=== PATIENT | female | born 1985 | race Hispanic/Latino ===

== ENCOUNTER 2017-09-08 19:43 | Emergency (ER) | payer SELFPAY ==
[2017-09-08 21:06] LABS: Absolute Lymphocytes (CBC) 1.4 K/uL (0.7-4.9); Absolute Monocytes 0.3 K/uL (0.1-1.3); Absolute Neutrophil 3.2 K/uL (1.8-8.0); Basophils % 0.2 % (0-1.3); Eosinophils % 1.1 % (0-4.4); Hematocrit 40.4 % (36.0-45.0); Lymphocytes % 27.6 % (15.3-44.8); MCH 28.9 pg (27.0-35.0); MCV 83.9 fL (80-100); MPV 8.7 fL (7.6-11.3); Monocytes % 6.6 % (3.3-12.3); RBC Red Blood Cell Count 4.82 M/uL (3.86-4.86)
[2017-09-08 21:22] LABS: BUN Blood Urea Nitrogen 10 mg/dL (7-18); Bicarbonate 27 mmol/L (21-32); Glucose Level 84 mg/dL (74-106); Potassium 3.3 mmol/L (3.5-5.1); Sodium Level 138 mmol/L (136-145)
[2017-09-08 21:28] LABS: Urine Blood NEGATIVE (NEG); Urine Glucose NEGATIVE (NEG); Urine Protein NEGATIVE (NEG); Urine Specific Gravity 1.015 (1.005-1.030)
[2017-09-08] MEDS ORDERED: FAMOTIDINE 20 MG/2 ML VIAL IV ONE (22:30)
[2017-09-08] MEDS ORDERED: POTASSIUM 25 MEQ EFFERV TAB ONE (22:30)
[2017-09-08] MEDS ORDERED: DIPHENHYDRAMINE 50 MG/ML VIAL ONE (22:30)
[2017-09-08] MEDS ORDERED: predniSONE 20 MG TAB ONE (22:30)
--- NOTE | 2017-09-08 23:42 | ER ---
Nurse's Notes [facility] Name: Tammy Mckinley Age: 32 yrs Sex: Female : 1985 Arrival Date: 09/08/2017 Time: 19:47 Bed 13 Private MD: Diagnosis: Chest pain, unspecified;Rash and other nonspecific skin eruption Presentation: 09/08 19:53 Presenting complaint: Patient states: "I tested positive at my job for TB, but my chest aj1 X-Ray was negative so the health department gave me a choice to take the 12 week antibiotics and I am. I woke up covered in hives. I've been using Benadryl and hydrocortisone cream, which helps but as soon as the Benadryl wears off the hives come right back. Last night my chest started to feel really tight, and my hives are really itching. I texted the nurse at the health department and she said that I needed to be seen by a doctor. Transition of care: patient was not received from another setting of care. Onset of symptoms was September 06, 2017. Risk Assessment: Do you want to hurt yourself or someone else? Patient reports no desire to harm self or others. Initial Sepsis Screen: Does the patient meet any 2 criteria? No. Patient's initial sepsis screen is negative. Does the patient have a suspected source of infection? No. Patient's initial sepsis screen is negative. Care prior to arrival: None. 19:53 Method Of Arrival: Ambulatory aj1 19:53 Acuity: VIOLET 3 aj1 Triage Assessment: 20:02 General: Appears in no apparent distress. comfortable, Behavior is calm, cooperative, aj1 appropriate for age. Pain: Complains of pain in mouth Pain does not radiate. Pain currently is 5 out of 10 on a pain scale. Neuro: Level of Consciousness is awake, alert, obeys commands, Oriented to person, place, time, situation. Cardiovascular: Denies chest pain at this time Patient's skin is warm and dry. Respiratory: Airway is patent Respiratory effort is even, unlabored, Respiratory pattern is regular, symmetrical, Breath sounds are clear bilaterally. Derm: Skin is pink, warm \\T\\ dry. normal. Musculoskeletal: Circulation, motion, and sensation intact. 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 - Social history:: Smoking status: Patient uses tobacco products, denies chronic smoking, but will smoke occasionally. - Ebola Screening: : Patient denies travel to an Ebola-affected area in the 21 days before illness onset. Screenin:13 Abuse screen: Denies threats or abuse. Denies injuries from another. Nutritional rv screening: No deficits noted. Tuberculosis screening: No symptoms or risk factors identified. Fall Risk None identified. Assessment: 20:10 General: Appears in no apparent distress. comfortable, Behavior is calm, cooperative. rv Pain: Denies pain. Neuro: Level of Consciousness is awake, alert, obeys commands, Oriented to person, place, time, situation. Cardiovascular: Cardiovascular: Heart tones S1 S2 present. Respiratory: Breath sounds are clear bilaterally. Respiratory: Airway is patent. GI: No signs and/or symptoms were reported involving the gastrointestinal system. : No signs and/or symptoms were reported regarding the genitourinary system. EENT: No signs and/or symptoms were reported regarding the EENT system. Derm: Rash noted that is itchy, on generalized. 20:41 Reassessment:. rv 21:23 Reassessment: Patient appears in no apparent distress at this time. Patient is alert, rv oriented x 3, equal unlabored respirations, skin warm/dry/pink. stable vital signs. awaiting lab results. 21:53 Reassessment: Patient appears in no apparent distress at this time. Patient is alert, rv oriented x 3, equal unlabored respirations, skin warm/dry/pink. PATIENT IS LYING ON BED, COMFORTABLE. 23:59 Pain: Denies pain. Pain began. rv Vital Signs: 20:02 BP 117 / 90; Pulse 72; Resp 18; Temp 98.4; Pulse Ox 98% on R/A; Weight 84.82 kg (R); aj1 Height 4 ft. 11 in. (149.86 cm) (R); 21:22 BP 130 / 107; Pulse 68; Resp 16; Pulse Ox 99% on R/A; rv 21:54 BP 122 / 71; Pulse 72; Resp 16; Pulse Ox 100% on R/A; rv 22:48 BP 115 / 86; rv 20:02 Body Mass Index 37.77 (84.82 kg, 149.86 cm) [facility] ED Course: 19:47 Patient arrived in ED. es 20:01 Triage completed. aj1 20:02 Arm band placed on Patient placed in an exam room. aj1 20:08 Catina Pa NP is PHCP. 1 20:08 Rhett Edgar MD is Attending Physician. rh1 20:13 Patient has correct armband on for positive identification. Bed in low position. Call rv light in reach. Side rails up X 1. Pulse ox on. NIBP on. 20:20 Inserted saline lock: 20 gauge in left antecubital area, using aseptic technique. rv 22:22 Chest Single View XRAY In Process Unspecified. EDOK 22:36 Alireza Yu, RN is Primary Nurse. bp 23:58 No provider procedures requiring assistance completed. IV discontinued, bleeding rv controlled, No redness/swelling at site. Pressure dressing applied. 23:59 Patient maintains SpO2 saturation greater than 95% on room air. rv Administered Medications: 22:39 Drug: Pepcid 20 mg Route: IVP; Site: left antecubital; rv 22:39 Drug: Benadryl 50 mg Route: IVP; Site: left antecubital; rv 22:39 Drug: Potassium Effervescent Tablet 50 mEq Route: PO; rv 22:40 Drug: predniSONE 60 mg Route: PO; rv Outcome: 23:41 Discharge ordered by . [facility] 23:58 Discharged to home ambulatory. rv 23:58 Condition: improved 23:58 Discharge instructions given to patient, Instructed on discharge instructions, medication usage. 07 00:00 Patient left the ED. rv Signatures: Dispatcher [employer] EDOK Lotus Carroll RN RN [facility] Stephanie Falk Rachel, NP TYPESETTING MACHINE OPERATOR/TENDER [facility] Alireza Yu, RN RN bp John Sun RN RN rv
--- NOTE | 2017-09-08 23:42 | EDPHYS ---
Physician Documentation [facility] Name: Tammy Mckinley Age: 32 yrs Sex: Female : 1985 Arrival Date: 09/08/2017 Time: 19:47 Bed 13 Private MD: ED Physician Rhett Edgar HPI: 09/08 20:16 This 32 yrs old Female presents to ER via Ambulatory with complaints of Chest rh1 Tightness, Allergic Reaction. 20:16 The patient or guardian reports chest pain that is located primarily in the anterior rh1 chest wall, left. The pain does not radiate. Associated signs and symptoms: Pertinent positives: nausea, Pertinent negatives: abdominal pain, cough, diaphoresis, dizziness, headache, lower extremity pain, lower extremity swelling, lightheadedness, near syncope, palpitations, recent travel, shortness of breath, syncope, vomiting. The chest pain is described as tight. Duration: The patient or guardian reports multiple episodes, that have now resolved, approximately 2 episodes since symptom onset, with no pattern, the episodes last approximately 10 minute(s). Duration: The patient or guardian reports multiple episodes, most recent episode just DRAWER IN PLAIN LOOM. Modifying factors: The symptoms are alleviated by nothing. the symptoms are aggravated by nothing. Severity of pain: At its worst the pain was moderate in the emergency department the pain has resolved. The patient has not experienced similar symptoms in the past. The patient has not recently seen a physician. Pt. reports she began with hives approx. 3 days ago, diffusely. She has been taking benadryl at home, most recent dose this am. Last night and today she has had episodes of "tight" non - radiating chest pain, not provoked by exertion. She did have nausea with episodes. She denies any complaints at this time, except itching. Denies any SOB, vomiting, diarrhea, abdominal pain. Approx 3 weeks ago she began once weekly treatment for latent TB with isoniazid and rifapentine, and thinks she is having an allergic reaction to one of those medications.. 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 - Social history:: Smoking status: Patient uses tobacco products, denies chronic smoking, but will smoke occasionally. - Ebola Screening: : Patient denies travel to an Ebola-affected area in the 21 days before illness onset. ROS: 20:16 Constitutional: Negative for fever, chills rh1 20:16 ENT: Negative for difficulty swallowing, difficulty handling secretions, hoarseness. 20:16 Neck: Negative for swelling. 20:16 Cardiovascular: Positive for chest pain, Negative for edema, orthopnea, palpitations. 20:16 Respiratory: Negative for cough, dyspnea on exertion, hemoptysis, shortness of breath, wheezing. 20:16 Abdomen/GI: Positive for nausea, Negative for abdominal pain, vomiting, diarrhea. 20:16 Back: Negative for decreased range of motion, pain at rest, pain with movement, radiated pain. 20:16 MS/extremity: Negative for pain, paresthesias, swelling, tenderness. 20:16 Skin: Positive for rash. 20:16 Neuro: Negative for altered mental status, dizziness, headache, numbness, syncope, near syncope, tingling, weakness. Exam: 20:16 Constitutional: This is a well developed, well nourished patient who is awake, alert, rh1 and in no acute distress. Head/Face: Normocephalic, atraumatic. ENT: Nares patent. No nasal discharge, no septal abnormalities noted. Tympanic membranes are normal and external auditory canals are clear. Oropharynx with no redness, swelling, or masses, exudates, or evidence of obstruction, uvula midline. Mucous membranes moist. Neck: Trachea midline, and no cervical lymphadenopathy. Supple, full range of motion without nuchal rigidity. No Meningismus. Chest/axilla: Normal chest wall appearance and motion. Nontender with no deformity. No lesions are appreciated. Cardiovascular: Regular rate and rhythm with a normal S1 and S2. No gallops, murmurs, or rubs. No JVD. No pulse deficits. Respiratory: Lungs have equal breath sounds bilaterally, clear to auscultation. No rales, rhonchi or wheezes noted. No increased work of breathing. Abdomen/GI: Soft, non-tender, with normal bowel sounds. No distension. No guarding or rebound. No evidence of tenderness throughout. Back: No spinal tenderness. No costovertebral tenderness. Full range of motion. MS/ Extremity: Pulses equal, no cyanosis. Neurovascular intact. Full, normal range of motion. 20:16 Musculoskeletal/extremity: DVT Exam: No signs of deep vein thrombosis. Calves: are non-tender, have equal circumference. 20:16 Skin: rash a mild rash is noted, rash can be described as erythematous, raised, urticarial, and is diffusely located, rash scattered diffusely. 20:16 Neuro: Orientation: is normal, to person, place \\T\\ time. Mentation: is normal, lucid, able to follow commands, Motor: is normal, moves all fours, strength is 5/5 in all extremities, Sensation: is normal, no obvious gross deficits, numbness, is not appreciated, tingling, is not appreciated, Gait: is steady, at a normal pace, without difficulty. Vital Signs: 20:02 BP 117 / 90; Pulse 72; Resp 18; Temp 98.4; Pulse Ox 98% on R/A; Weight 84.82 kg (R); aj1 Height 4 ft. 11 in. (149.86 cm) (R); 21:22 BP 130 / 107; Pulse 68; Resp 16; Pulse Ox 99% on R/A; rv 21:54 BP 122 / 71; Pulse 72; Resp 16; Pulse Ox 100% on R/A; rv 22:48 BP 115 / 86; rv 20:02 Body Mass Index 37.77 (84.82 kg, 149.86 cm) aj MDM: 20:16 Patient medically screened. rh1 23:40 Response to treatment: the patient's symptoms have markedly improved after treatment, rh1 denies any further episodes of chest pain, no SOB, denies any further itching -- she was instructed by health dept. nurse to stop medications for TB, and is planning to have follow up with Dr. Gregorio regarding further treatment if needed. 23:40 Data reviewed: vital signs, nurses notes, lab test result(s), EKG, radiologic studies, rh1 plain films, and as a result, I will discharge patient. Data interpreted: Pulse oximetry: on room air is 100 %. Interpretation: normal. Counseling: I had a detailed discussion with the patient and/or guardian regarding: the historical points, exam findings, and any diagnostic results supporting the discharge/admit diagnosis, lab results, radiology results, the need for outpatient follow up, a family practitioner, to return to the emergency department if symptoms worsen or persist or if there are any questions or concerns that arise at home. 09/08 20:52 Order name: CBC with Diff; Complete Time: 21:10 1 09/08 20:52 Order name: BMP; Complete Time: 21:55 [facility] 09/08 20:52 Order name: Troponin (emerg Dept Use Only); Complete Time: 21:55 09/08 20:52 Order name: Chest Single View XRAY [facility] 09/08 21:25 Order name: Urine Dipstick--Ancillary (enter results); Complete Time: 21:55 09/08 21:25 Order name: Urine --Ancillary (enter results); Complete Time: 21:55 09/08 20:52 Order name: EKG - Nurse/Tech; Complete Time: 21: 09/08 20:52 Order name: Urine Dipstick-Ancillary (obtain specimen); Complete Time: 21: 09/08 20:52 Order name: Urine Test (obtain specimen); Complete Time: 21:21 rh1 Administered Medications: 22:39 Drug: Pepcid 20 mg Route: IVP; Site: left antecubital; rv 22:39 Drug: Benadryl 50 mg Route: IVP; Site: left antecubital; rv 22:39 Drug: Potassium Effervescent Tablet 50 mEq Route: PO; rv 22:40 Drug: predniSONE 60 mg Route: PO; rv Disposition: 09/08/17 23:41 Discharged to Home. Impression: Chest pain, unspecified, Rash and other nonspecific skin eruption. - Condition is Stable. - Discharge Instructions: Allergies, Nonspecific Chest Pain, Rash. - Prescriptions for Prednisone 20 mg Oral Tablet - take 2 tablet by ORAL route once daily for 5 days; 10 tablet. Pepcid 20 mg Oral Tablet - take 1 tablet by ORAL route once daily; 20 tablet. Benadryl 25 mg Oral Capsule - take 1 capsule by ORAL route every 6 hours As needed; 30 tablet. - Medication Reconciliation Form, Thank You Letter, Antibiotic Education, Prescription Opioid Use form. - Follow up: Private Physician; When: 1 - 2 days; Reason: Recheck today's complaints, Continuance of care, Re-evaluation by your physician. Follow up: Emergency Department; When: As needed; Reason: Fever > 102 F, If symptoms return, Trouble breathing, Worsening of condition. - Problem is new. - Symptoms have improved. - Notes: 1. Stopantibiotics as instruced by health department nurse and follow up as discussed. Addendum: 09/10/2017 08:46 Co-signature as Attending Physician, Rhett Edgar MD I agree with the assessment and c lopes plan of care. Signatures: Dispatcher [employer] EDMS Lotus Carroll RN RN 1 Rhett Edgar MD MD cha Jones, Rachel, MEDHAT OFFAL SEPARATOR 1 John Sun RN RN rv Corrections: (The following items were deleted from the chart) 09/08 21:03 20:16 Pt. reports she began with hives approx. 3 days ago, diffusely. She has been rh1 taking benadryl at home, most recent dose this am. Last night and today she has had episodes of "tight" non - radiating chest pain, not provoked by exertion. She did have nausea with episodes. She denies any complaints at this time, except itching. Denies any SOB, vomiting, diarrhea, abdominal pain.. 1 09/09 00:00 09/08 23:41 09/08/2017 23:41 Discharged to Home. Impression: Chest pain, unspecified; rv Rash and other nonspecific skin eruption. Condition is Stable. Forms are Medication Reconciliation Form, Thank You Letter, Antibiotic Education, Prescription Opioid Use. Follow up: Private Physician; When: 1 - 2 days; Reason: Recheck today's complaints, Continuance of care, Re-evaluation by your physician. Follow up: Emergency Department; When: As needed; Reason: Fever > 102 F, If symptoms return, Trouble breathing, Worsening of condition. Problem is new. Symptoms have improved. 1 09/09 02:10 09/08 23:40 Response to treatment: the patient's symptoms have markedly improved after rh1 treatment, denies any further episodes of chest pain, no SOB, denies any further itching, 1 09/09 02:11 09/08 20:16 Pt. reports she began with hives approx. 3 days ago, diffusely. She has rh1 been taking benadryl at home, most recent dose this am. Last night and today she has had episodes of "tight" non - radiating chest pain, not provoked by exertion. She did have nausea with episodes. She denies any complaints at this time, except itching. Denies any SOB, vomiting, diarrhea, abdominal pain. Approx 3 weeks ago she began once weekly treatment for latent TB with isoniazid and rifapentine, and thinks she is having an allergic reaction to one of those medications.. rh1
[2017-09-09 00:24] VITALS: TEMP 98.4
[2017-09-09 00:26] VITALS: O2SAT 100
[2017-09-09 00:27] VITALS: BP 115/86
--- NOTE | 2017-09-09 12:40 | RAD REPORT ---
EXAM DESCRIPTION: RAD - Chest Single View - 09/08/2017 10:22 pm CLINICAL HISTORY: CHEST PAIN Chest pain. COMPARISON: No comparisons FINDINGS: Portable technique limits examination quality. The lungs are grossly clear. The heart is normal in size. No displaced fractures.No finding suspiciou s for tuberculosis. IMPRESSION: No acute intrathoracic process suspected.
--- NOTE | 2017-09-09 16:04 | EKG ---
Test Date: 2017-09-08 Test Time: 21:11:06 Receiving Worker: MEASUREMENT RESULTS: Intervals: Rate: 69 MI: 126 QRSD: 102 QT: 402 QTc: 430 [place]: P: 41 MI: 126 QRS: 53 T: 37 INTERPRETIVE STATEMENTS: Normal sinus rhythm Normal ECG No previous ECG available for comparison Electronically Signed On 09-09-17 16:03:32 CDT by Will Good
== END 2017-09-09 | disposition home or self-care (01) ==
LOC: ER 19:43
DX: R21 Rash and other nonspecific skin eruption (principal); Z72.0 Tobacco use
CPT/HCPCS: 36415; 71045; 80048; 81003; 81025; 84484; 85025; 93005; 96374; 96375; 99284; J7512

== ENCOUNTER 2018-11-25 08:44 | Emergency (ER) | payer SELFPAY ==
[2018-11-25] MEDS ORDERED: AZITHROMYCIN 250 MG TAB ONE (10:46)
--- NOTE | 2018-11-25 11:28 | ER ---
Nurse's Notes [facility] Name: Tammy Mckinley Age: 33 yrs Sex: Female : 1985 Arrival Date: 11/25/2018 Time: 08:47 Bed 25 Private MD: Diagnosis: Streptococcal pharyngitis Presentation: 11/25 09:04 Presenting complaint: Patient states: sore throat since this am. Transition of care: sv patient was not received from another setting of care. Onset of symptoms was November 25, 2018. Risk Assessment: Do you want to hurt yourself or someone else? Patient reports no desire to harm self or others. Care prior to arrival: None. 09:04 Method Of Arrival: Ambulatory sv 09:04 Acuity: VIOLET 4 sv 09:05 Initial Sepsis Screen: Does the patient meet any 2 criteria? No. Patient's initial rb1 sepsis screen is negative. Does the patient have a suspected source of infection? No. Patient's initial sepsis screen is negative. Triage Assessment: 09:04 General: Appears in no apparent distress. comfortable, Behavior is calm, cooperative, sv appropriate for age. EENT: Reports pain when swallowing. Neuro: Level of Consciousness is awake, alert, obeys commands, Gait is steady. Respiratory: Respiratory effort is even, unlabored, Respiratory pattern is regular, symmetrical. 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 - Social history:: Smoking status: Patient uses tobacco products, denies chronic smoking, but will smoke occasionally. - Ebola Screening: : Patient negative for fever greater than or equal to 101.5 degrees Fahrenheit, and additional compatible Ebola Virus Disease symptoms. Screenin:05 Abuse screen: Denies threats or abuse. Nutritional screening: No deficits noted. rb1 Tuberculosis screening: inactive TB per pt. report. Fall Risk None identified. Assessment: 09:05 General: Appears in no apparent distress. comfortable, Behavior is calm, cooperative, rb1 Denies fever. Pain: Complains of pain in throat Pain currently is 5 out of 10 on a pain scale. Pain began this morning. Neuro: Level of Consciousness is awake, alert, obeys commands, Oriented to person, place, time, situation. Cardiovascular: Capillary refill < 3 seconds is brisk in bilateral fingers. Respiratory: Airway is patent Respiratory effort is even, unlabored, Respiratory pattern is regular, symmetrical. GI: Reports diarrhea, intermittently for the past week. : No signs and/or symptoms were reported regarding the genitourinary system. EENT: Throat is reddened. Derm: Skin is pink, warm \T\ dry. Musculoskeletal: Range of motion: intact in all extremities. 09:05 Respiratory: Breath sounds are clear bilaterally. rb1 Vital Signs: 09:07 BP 118 / 80; Pulse 76; Resp 16; Temp 98.2(O); Pulse Ox 97% on R/A; Weight 90.72 kg; sv Height 4 ft. 11 in. (149.86 cm); Pain 5/10; 10:07 BP 116 / 75; Pulse 81; Resp 16; Temp 98.1(O); Pulse Ox 99% ; rb1 09:07 Body Mass Index 40.39 (90.72 kg, 149.86 cm) sv ED Course: 08:47 Patient arrived in ED. as 08:57 Rosa Isela Vasquez F[facility]-C [facility] snw 08:57 Rhett Edgar MD is Attending Physician. snw 09:04 Triage completed. sv 09:04 Arm band placed on. sv 09:05 Patient has correct armband on for positive identification. Bed in low position. Call rb1 light in reach. Side rails up X 1. Pulse ox on. NIBP on. 09:17 Olga Field, RN is Primary Nurse. rb1 10:59 Patient did not have IV access during this emergency room visit. rb1 10:59 No provider procedures requiring assistance completed. rb1 Administered Medications: 10:53 Drug: Zithromax 500 mg Route: PO; rb1 10:59 Follow up: Response: No adverse reaction; Medication administered at discharge. rb1 Outcome: 10:21 Discharge ordered by . snw 10:59 Patient left the ED. rb1 10:59 Discharged to home ambulatory, with family. rb1 10:59 Condition: stable 10:59 Discharge instructions given to patient, Instructed on Demonstrated understanding of instructions, follow-up care, medications, Prescriptions given X 2. Signatures: Kelvin, Karina, RN RN sv Rosa Isela Vasquez, HOP TRAINER-C HOP TRAINER-Cs[facility] Amy Morillo Rebecca, RN RN rb1
--- NOTE | 2018-11-25 11:28 | EDPHYS ---
Physician Documentation [facility] Name: Tammy Mckinley Age: 33 yrs Sex: Female : 1985 Arrival Date: 11/25/2018 Time: 08:47 Bed 25 Private MD: VINCENT Physician Rhett Edgar HPI: 11/25 10:02 This 33 yrs old Female presents to ER via Ambulatory with complaints of Sore snw Throat. 10:02 The patient presents with sore throat. The patient describes throat pain as raw. Onset: snw The symptoms/episode began/occurred suddenly. Severity of symptoms: At their worst the symptoms were mild, moderate. Associated signs and symptoms: The patient has no apparent associated signs or symptoms. It is unknown whether or not the patient has had similar symptoms in the past. It is unknown whether or not the patient has recently seen a physician. 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 - Social history:: Smoking status: Patient uses tobacco products, denies chronic smoking, but will smoke occasionally. - Ebola Screening: : Patient negative for fever greater than or equal to 101.5 degrees Fahrenheit, and additional compatible Ebola Virus Disease symptoms. ROS: 10:01 Constitutional: Negative for fever, chills, and weight loss, Eyes: Negative for injury, snw pain, redness, and discharge, Neck: Negative for injury, pain, and swelling, Cardiovascular: Negative for chest pain, palpitations, and edema, Respiratory: Negative for shortness of breath, cough, wheezing, and pleuritic chest pain, Abdomen/GI: Negative for abdominal pain, nausea, vomiting, diarrhea, and constipation, Back: Negative for injury and pain, : Negative for injury, bleeding, discharge, and swelling, MS/Extremity: Negative for injury and deformity, Skin: Negative for injury, rash, and discoloration, Neuro: Negative for headache, weakness, numbness, tingling, and seizure. 10:01 ENT: Positive for sore throat. Exam: 10:00 Constitutional: This is a well developed, well nourished patient who is awake, alert, snw and in no acute distress. Head/Face: Normocephalic, atraumatic. Eyes: Pupils equal round and reactive to light, extra-ocular motions intact. Lids and lashes normal. Conjunctiva and sclera are non-icteric and not injected. Cornea within normal limits. Periorbital areas with no swelling, redness, or edema. ENT: Nares patent. No nasal discharge, no septal abnormalities noted. Tympanic membranes are normal and external auditory canals are clear. Some scarring noted to right TM. Oropharynx with mild redness, swelling, no masses, exudates, or evidence of obstruction, uvula midline. tonsils enlarged bilaterally. Mucous membranes moist. Neck: Trachea midline, no thyromegaly or masses palpated, and no cervical lymphadenopathy. Supple, full range of motion without nuchal rigidity, or vertebral point tenderness. No Meningismus. Chest/axilla: Normal chest wall appearance and motion. Nontender with no deformity. No lesions are appreciated. Cardiovascular: Regular rate and rhythm with a normal S1 and S2. No gallops, murmurs, or rubs. Normal PMI, no JVD. No pulse deficits. Respiratory: Lungs have equal breath sounds bilaterally, clear to auscultation and percussion. No rales, rhonchi or wheezes noted. No increased work of breathing, no retractions or nasal flaring. Abdomen/GI: Soft, non-tender, with normal bowel sounds. No distension or tympany. No guarding or rebound. No evidence of tenderness throughout. Back: No spinal tenderness. No costovertebral tenderness. Full range of motion. Skin: Warm, dry with normal turgor. Normal color with no rashes, no lesions, and no evidence of cellulitis. MS/ Extremity: Pulses equal, no cyanosis. Neurovascular intact. Full, normal range of motion. Neuro: Awake and alert, GCS 15, oriented to person, place, time, and situation. Cranial nerves II-XII grossly intact. Motor strength 5/5 in all extremities. Sensory grossly intact. Cerebellar exam normal. Normal gait. Psych: Awake, alert, with orientation to person, place and time. Behavior, mood, and affect are within normal limits. Vital Signs: 09:07 BP 118 / 80; Pulse 76; Resp 16; Temp 98.2(O); Pulse Ox 97% on R/A; Weight 90.72 kg; sv Height 4 ft. 11 in. (149.86 cm); Pain 5/10; 10:07 BP 116 / 75; Pulse 81; Resp 16; Temp 98.1(O); Pulse Ox 99% ; rb1 09:07 Body Mass Index 40.39 (90.72 kg, 149.86 cm) sv MDM: 09:[address] [facility] 10:21 Data reviewed: vital signs, nurses notes. Data interpreted: Pulse oximetry: on room air snw is 97 %. Interpretation: normal. Counseling: I had a detailed discussion with the patient and/or guardian regarding: the historical points, exam findings, and any diagnostic results supporting the discharge/admit diagnosis, lab results, the need for outpatient follow up, to return to the emergency department if symptoms worsen or persist or if there are any questions or concerns that arise at home. Special discussion: Based on the history and exam findings, there is no indication for further emergent testing or inpatient evaluation. I discussed with the patient/guardian the need to see the primary care provider for further evaluation of the symptoms. 10:27 ED course: Daughter in ED strep + today. snw 11/25 08:56 Order name: Strep snw Administered Medications: 10:53 Drug: Zithromax 500 mg Route: PO; rb1 10:59 Follow up: Response: No adverse reaction; Medication administered at discharge. rb1 Disposition: 11/26 07:42 Co-signature as Attending Physician, Rhett Edgar MD I agree with the assessment and [facility] plan of care. Disposition: 11/25/18 10:21 Discharged to Home. Impression: Streptococcal pharyngitis. - Condition is Stable. - Discharge Instructions: Sore Throat, Strep Throat. - Prescriptions for promethazine 25 mg Oral Tablet - take 1 tablet by ORAL route every 6 hours As needed; 20 tablet. Zithromax 500 mg Oral Tablet - take 1 tablet by ORAL route once daily for 5 days; 5 tablet. - Work release form, Medication Reconciliation Form, Thank You Letter, Antibiotic Education, Prescription Opioid Use form. - Follow up: Emergency Department; When: As needed; Reason: Worsening of condition. Follow up: Private Physician; When: 2 - 3 days; Reason: Recheck today's complaints, Continuance of care, Re-evaluation by your physician. Signatures: Dispatcher [employer] Karina Johnson, RN RN Rhett Santacruz MD MD cha Therrien, Shelly, ATTRACTION ATTENDANT-C ATTRACTION ATTENDANT-Csnw Olga Field, RN RN rb1 Corrections: (The following items were deleted from the chart) 11/25 10:59 10:21 11/25/2018 10:21 Discharged to Home. Impression: Streptococcal pharyngitis. rb1 Condition is Stable. Forms are Medication Reconciliation Form, Thank You Letter, Antibiotic Education, Prescription Opioid Use. Follow up: Emergency Department; When: As needed; Reason: Worsening of condition. Follow up: Private Physician; When: 2 - 3 days; Reason: Recheck today's complaints, Continuance of care, Re-evaluation by your physician. snw
[2018-11-25 11:33] VITALS: BP 118/80; TEMP 98.2; O2SAT 97
== END 2018-11-25 10:59 | disposition home or self-care (01) ==
LOC: ER 08:44
DX: J02.0 Streptococcal pharyngitis (principal); Z72.0 Tobacco use
CPT/HCPCS: 87070; 87081; 99283

== ENCOUNTER 2019-05-07 01:49 | Emergency (ER) | payer SELFPAY ==
[2019-05-07] MEDS ORDERED: KETOROLAC 30 MG/ML INJ ONE (02:42)
[2019-05-07] MEDS ORDERED: dexAMETHasone 4 MG/ML VIAL ONE (02:42)
--- NOTE | 2019-05-07 02:42 | EDPHYS ---
Physician Documentation [facility] Name: Tammy Mckinley Age: 34 yrs Sex: Female : 1985 Arrival Date: 05/07/2019 Time: 01:49 Bed 8 Private MD: ED Physician Flex Brown HPI: 05/07 02:35 This 34 yrs old Female presents to ER via Ambulatory with complaints of Back rn Pain. 02:35 The patient presents with pain that is acute, with no known mechanism of injury. The rn symptoms are located in the thoracic area. 02:35 Onset: The symptoms/episode began/occurred yesterday. The pain does not radiate. rn Associated signs and symptoms: The patient has no apparent associated signs or symptoms, Pertinent negatives: abdominal pain, chest pain, fever, incontinence, nausea, numbness, tingling, urinary retention, vomiting, weakness. Modifying factors: The patient symptoms are alleviated by remaining still, massage, the patient symptoms are aggravated by any movement. Severity of symptoms: At their worst the symptoms were moderate, in the emergency department the symptoms are unchanged. The patient has experienced similar episodes in the past. 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 No urinary symptoms. Reports saw Radha Richards and had neg plain films, has never had an MRI. Came tonight to try to get MRI. . Historical: - Allergies: 01:55 Rifampin; jb4 - Home Meds: 01:55 Melatonin Oral [Active]; jb4 - PMHx: 01:55 inactive TB; jb4 - PSHx: 01:55 abcess removal; ; jb4 - Immunization history:: Adult Immunizations up to date. - Coronavirus screen:: The patient has NOT traveled to [place] in the past 14 days. Proceed with normal triage process as indicated. The patient has NOT had contact with known/suspected case of Coronavirus? Proceed with normal triage procedures. - Social history:: Smoking status: Patient denies any tobacco usage or history of. Patient uses alcohol, only on a social basis. Patient/guardian denies using alcohol. - Family history:: not pertinent. - Ebola Screening: : No symptoms or risks identified at this time. - Hospitalizations: : No recent hospitalization is reported. ROS: 02:35 Constitutional: Negative for fever, chills, and weight loss, Eyes: Negative for injury, rn pain, redness, and discharge, Neck: Negative for injury, pain, and swelling, Cardiovascular: Negative for chest pain, palpitations, and edema, Respiratory: Negative for shortness of breath, cough, wheezing, and pleuritic chest pain, Abdomen/GI: Negative for abdominal pain, nausea, vomiting, diarrhea, and constipation, Back: + mid back pain, neg for injury : Negative for injury, bleeding, discharge, and swelling, MS/Extremity: Negative for injury and deformity, Skin: Negative for injury, rash, and discoloration, Neuro: Negative for headache, weakness, numbness, tingling, and seizure. Exam: 02:35 Constitutional: This is a well developed, well nourished patient who is awake, alert, rn and in no acute distress. Ambulatory to room without difficulty or assistance. Head/Face: Normocephalic, atraumatic. Eyes: Pupils equal round and reactive to light, extra-ocular motions intact. Neck: No cervical tenderness Back: No spinal tenderness. No skin changes, no stepoff Skin: Warm, dry MS/ Extremity: Pulses equal, no cyanosis. Neurovascular intact. Full, normal range of motion. Equal circumference. Neuro: Awake and alert, GCS 15, oriented to person, place, time, and situation. Motor strength 5/5 in all extremities. Sensory grossly intact. Cerebellar exam normal. Normal gait. Vital Signs: 01:55 BP 133 / 84; Pulse 67; Resp 16; Temp 98.1(TE); Pulse Ox 100% on R/A; Weight 90.72 kg jb4 (R); Height 4 ft. 11 in. (149.86 cm) (R); Pain 8/10; 02:45 BP 126 / 67; Pulse 97; Resp 16; Pulse Ox 100% on R/A; jb4 01:55 Body Mass Index 40.39 (90.72 kg, 149.86 cm) jb4 MDM: 01:53 Patient medically screened. rn 02:35 Differential diagnosis: arthritis, chronic back pain, muscle spasm, radiculopathy, disc rn problems. Data reviewed: vital signs, nurses notes, and as a result, I will discharge patient. Counseling: I had a detailed discussion with the patient and/or guardian regarding: the historical points, exam findings, and any diagnostic results supporting the discharge/admit diagnosis, the need for outpatient follow up, to return to the emergency department if symptoms worsen or persist or if there are any questions or concerns that arise at home. Response to treatment: the patient's symptoms have mildly improved after treatment, and as a result, I will discharge patient. Special discussion: I discussed with the patient/guardian in detail that at this point there is no indication for admission to the hospital. It is understood, however, that if the symptoms persist or worsen the patient needs to return immediately for re-evaluation. Further emergent ED testing is not indicated at this point in time. I discussed with the patient/guardian in detail the need to arrange with the PCP or specialist further outpatient testing, MRI. ED course: Normal neuro exam, no new symptoms, not able to get MRI here, recommend outpt MRI and pcp f/u. . 05/07 02:11 Order name: EKG; Complete Time: 02:12 rn 05/07 02:11 Order name: EKG - Nurse/Tech; Complete Time: 02:51 rn Administered Medications: 02:48 Drug: TORadol 30 mg Route: IM; Site: left gluteus; jb4 03:15 Follow up: Response: No adverse reaction; Pain is decreased jb4 02:51 Drug: Decadron 10 mg Route: IM; Site: right gluteus; jb4 03:15 Follow up: Response: No adverse reaction 4 Disposition: 05/07/19 02:41 Discharged to Home. Impression: Muscle spasm of back, Back pain. - Condition is Stable. - Discharge Instructions: Muscle Cramps and Spasms, Back Injury Prevention, [id number], Back Exercises, [id number]. - Prescriptions for Cyclobenzaprine 10 mg Oral Tablet - take 1 tablet by ORAL route every 8 hours As needed; 20 tablet. Medrol (Ephraim) 4 mg Oral Tablets, Dose Pack - take 1 tablet by ORAL route as directed - follow package instructions; 1 packet. - Medication Reconciliation Form, Thank You Letter, Antibiotic Education, Prescription Opioid Use form. - Follow up: Private Physician; When: As needed; Reason: Recheck today's complaints, Re-evaluation by your physician. - Problem is chronic. - Symptoms have improved. Signatures: Flex Brown MD MD rn Bryson, James, RN RN jb4 Corrections: (The following items were deleted from the chart) 03:19 02:41 05/07/2019 02:41 Discharged to Home. Impression: Muscle spasm of back; Back pain. jb4 Condition is Stable. Forms are Medication Reconciliation Form, Thank You Letter, Antibiotic Education, Prescription Opioid Use. Follow up: Private Physician; When: As needed; Reason: Recheck today's complaints, Re-evaluation by your physician. Problem is chronic. Symptoms have improved. rn
--- NOTE | 2019-05-07 02:42 | ER ---
Nurse's Notes [facility] Name: Tammy Mckinley Age: 34 yrs Sex: Female : 1985 Arrival Date: 05/07/2019 Time: 01:49 Bed 8 Private MD: Diagnosis: Muscle spasm of back;Back pain Presentation: 05/07 01:55 Presenting complaint: Patient states: I am having upper back pain. I have had this pain jb4 for about 5 years. Normally I can do something about it, but tonight I can't and it feels like its moving down my spine. It feels like a fire in my back. 01:55 Transition of care: patient was not received from another setting of care. Onset of jb4 symptoms was May 07, 2019. Risk Assessment: Do you want to hurt yourself or someone else? Patient reports no desire to harm self or others. Initial Sepsis Screen: Does the patient meet any 2 criteria? No. Patient's initial sepsis screen is negative. Does the patient have a suspected source of infection? No. Patient's initial sepsis screen is negative. Care prior to arrival: None. 01:55 Method Of Arrival: Ambulatory jb4 01:55 Acuity: VIOLET 4 jb4 Historical: - Allergies: 01:55 Rifampin; jb4 - Home Meds: 01:55 Melatonin Oral [Active]; jb4 - PMHx: 01:55 inactive TB; jb4 - PSHx: 01:55 abcess removal; ; jb4 - Immunization history:: Adult Immunizations up to date. - Coronavirus screen:: The patient has NOT traveled to [place] in the past 14 days. Proceed with normal triage process as indicated. The patient has NOT had contact with known/suspected case of Coronavirus? Proceed with normal triage procedures. - Social history:: Smoking status: Patient denies any tobacco usage or history of. Patient uses alcohol, only on a social basis. Patient/guardian denies using alcohol. - Family history:: not pertinent. - Ebola Screening: : No symptoms or risks identified at this time. - Hospitalizations: : No recent hospitalization is reported. Screenin:00 Abuse screen: Denies threats or abuse. Nutritional screening: No deficits noted. jb4 Tuberculosis screening: No symptoms or risk factors identified. Fall Risk None identified. Assessment: 02:00 General: Appears in no apparent distress. uncomfortable, Behavior is calm, cooperative, jb4 appropriate for age. Pain: Complains of pain in thoracic area Pain does not radiate. Pain currently is 8 out of 10 on a pain scale. Quality of pain is described as burning. Neuro: Level of Consciousness is awake, alert, obeys commands, Oriented to person, place, time, situation. Cardiovascular: Patient's skin is warm and dry. Respiratory: Airway is patent Respiratory effort is even, unlabored, Respiratory pattern is regular, symmetrical. GI: No signs and/or symptoms were reported involving the gastrointestinal system. : No signs and/or symptoms were reported regarding the genitourinary system. EENT: No signs and/or symptoms were reported regarding the EENT system. Derm: Skin is intact, Skin is pink, warm \T\ dry. Musculoskeletal: Circulation, motion, and sensation intact. Range of motion: intact in all extremities. 03:15 Reassessment: Patient appears in no apparent distress at this time. Patient and/or jb4 family updated on plan of care and expected duration. Pain level reassessed. Patient is alert, oriented x 3, equal unlabored respirations, skin warm/dry/pink. Pt verbalized understanding of d/c and follow up instructions. Denies questions or concerns. Ambulated out of ED with steady gait. Vital Signs: 01:55 BP 133 / 84; Pulse 67; Resp 16; Temp 98.1(TE); Pulse Ox 100% on R/A; Weight 90.72 kg jb4 (R); Height 4 ft. 11 in. (149.86 cm) (R); Pain 8/10; 02:45 BP 126 / 67; Pulse 97; Resp 16; Pulse Ox 100% on R/A; jb4 01:55 Body Mass Index 40.39 (90.72 kg, 149.86 cm) jb4 ED Course: 01:49 Patient arrived in ED. ds1 01:53 Flex Brown MD is Attending Physician. rn 01:55 Arm band placed on right wrist. jb4 02:00 Patient has correct armband on for positive identification. Bed in low position. Call jb4 light in reach. Side rails up X 1. Pulse ox on. NIBP on. 02:09 Damaso Cifuentes, RN is Primary Nurse. jb4 02:11 Triage completed. jb4 03:18 No provider procedures requiring assistance completed. Patient did not have IV access jb4 during this emergency room visit. Administered Medications: 02:48 Drug: TORadol 30 mg Route: IM; Site: left gluteus; jb4 03:15 Follow up: Response: No adverse reaction; Pain is decreased jb4 02:51 Drug: Decadron 10 mg Route: IM; Site: right gluteus; jb4 03:15 Follow up: Response: No adverse reaction jb4 Outcome: 02:41 Discharge ordered by . rn 03:18 Discharged to home ambulatory. jb4 03:18 Condition: stable 03:18 Discharge instructions given to patient, Instructed on discharge instructions, follow up and referral plans. medication usage, Demonstrated understanding of instructions, follow-up care, medications, Prescriptions given X 2. 03:19 Patient left the ED. jb4 Signatures: Suzan Witt ds1 Flex Brown MD MD rn Bryson, James, RN RN jb4
[2019-05-07 05:18] VITALS: TEMP 98.1; O2SAT 100
[2019-05-07 05:19] VITALS: BP 126/67
--- NOTE | 2019-05-07 08:16 | EKG ---
Test Date: 2019-05-07 Test Time: 02:33:49 Unified Communications Engineer: MOUSTAPHA MEASUREMENT RESULTS: Intervals: Rate: 70 NV: 108 QRSD: 100 QT: 380 QTc: 410 [place]: P: 25 NV: 108 QRS: 72 T: 48 INTERPRETIVE STATEMENTS: Sinus rhythm with short NV Low voltage QRS Borderline ECG Compared to ECG 09/08/2017 21:11:06 Short NV interval now present Low QRS voltage now present Electronically Signed On 05-07-19 08:15:36 BINDERY MACHINE SETTER/SET UP OPERATOR by Will Good
== END 2019-05-07 03:19 | disposition home or self-care (01) ==
LOC: ER 01:49
DX: M62.830 Muscle spasm of back (principal); Z88.8 Allergy status to other drugs, medicaments and biological substances
CPT/HCPCS: 93005; 96372; 99283

== ENCOUNTER 2020-05-10 10:29 | Emergency (ER) | payer OTHER, SELFPAY ==
--- NOTE | 2020-05-10 11:59 | RAD REPORT ---
EXAM DESCRIPTION: US - Extremity Venous [facility] [employer] - 05/10/2020 11:47 am CLINICAL HISTORY: PAIN, left leg COMPARISON: None. TECHNIQUE: Real-time sonographic evaluation of the left lower extremity deep venous system was perfo rmed. FINDINGS: Normal compressibility, flow augmentation, phasic flow and spontaneous flow are identified in the left lower extremity common femoral, superficial femoral, popliteal and posterior tibial vein s. No intraluminal filling defects seen. IMPRESSION: No DVT in the left lower extremity.
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
[2020-05-10 13:05] VITALS: O2SAT 98
[2020-05-10 13:07] VITALS: BP 127/85; TEMP 97.5
== END 2020-05-10 12:27 | disposition home or self-care (01) ==
LOC: ER 10:29
DX: M79.662 Pain in left lower leg (principal); V49.49XA Driver injured in collision with other motor vehicles in traffic accident, initial encounter; Z88.1 Allergy status to other antibiotic agents; F17.210 Nicotine dependence, cigarettes, uncomplicated
CPT/HCPCS: 93971; 99283

== ENCOUNTER 2020-10-07 12:07 | Inpatient (IN) | payer SELFPAY ==
[2020-10-07 14:59] LABS: Urine Blood Negative (Negative); Urine Glucose Trace (Negative); Urine Protein Negative (Negative); Urine Specific Gravity <=1.005 (1.005-1.030)
[2020-10-07 15:20] LABS: Absolute Lymphocytes (CBC) 1.8 K/uL (0.7-4.9); Basophils % 1.1 % (0-1.3); Hematocrit 41.2 % (36.0-45.0); Lymphocytes % 25.8 % (15.3-44.8); MPV 8.1 fL (7.6-11.3); RBC Red Blood Cell Count 4.49 M/uL (3.86-4.86)
[2020-10-07 15:21] LABS: Urine Bacteria <20 /HPF (<20); Urine RBC <5 /HPF (NONE SEEN)
[2020-10-07] MEDS ORDERED: NA CHLORIDE 0.9% 1,000 ML ONE (15:33)
[2020-10-07 15:47] LABS: ALT/SGPT 120 U/L (12-78); AST/SGOT 106 U/L (15-37); Albumin 3.4 g/dL (3.4-5.0); Alkaline Phosphatase 87 U/L (45-117); BUN Blood Urea Nitrogen 7 mg/dL (7-18); Bicarbonate 26 mmol/L (21-32); Bilirubin Direct 0.3 mg/dL (0-0.2); Bilirubin Total 0.7 mg/dL (0.2-1.0); Glucose Level 72 mg/dL (74-106); Lipase 119 U/L (73-393); Potassium 3.7 mmol/L (3.5-5.1); Protein, Total 7.7 g/dL (6.4-8.2); Sodium Level 135 mmol/L (136-145)
--- NOTE | 2020-10-07 16:29 | RAD REPORT ---
EXAM DESCRIPTION: CTAbdomen Pelvis W Contrast - 10/07/2020 4:17 pm CLINICAL HISTORY: Abdominal pain. lower abdomen pain COMPARISON: No comparisons TECHNIQUE: Biphasic CT imaging of the abdomen and pelvis was performed with 100 ml non-ionic IV cont rast. All CT scans are performed using dose optimization technique as appropriate and may include automated exposure control or mA/KV adjustment according to patient size. FINDINGS: The lung bases are clear. The liver, spleen, pancreas, adrenal glands and kidneys are within normal limits. No bowel obstruction, free air, free fluid or abscess. The appendix is normal. No evidence of signi ficant lymphadenopathy. Cholelithiasis. Very mild pericholecystic edema. There is a stone impacted at the gallbladder neck. No suspicious bony findings. IMPRESSION: Cholelithiasis with a stone impacted near the gallbladder neck and mild pericholecystic stranding concerning for acute cholecystitis.
[2020-10-07] MEDS ORDERED: CEFTRIAXONE/SWI 1gm 1 GM/10 ML SYR ONE (17:17)
--- NOTE | 2020-10-07 18:36 | ER ---
Nurse's Notes [facility] Name: Tammy Mckinley Age: 35 yrs Sex: Female : 1985 Arrival Date: 10/07/2020 Time: 12:09 Bed 25 Private MD: Diagnosis: Calculus of gallbladder with acute cholecystitis with obstruction Presentation: 10/07 12:40 Acuity: VIOLET 3 aa5 12:40 Chief complaint: Patient states: lower abd pain that began 4 days ago. Pt reports aa5 nausea and vomiting on Sunday. Pt reports "dark urine". Coronavirus screen: At this time, the client does not indicate any symptoms associated with coronavirus-19. Ebola Screen: Patient negative for fever greater than or equal to 101.5 degrees Fahrenheit, and additional compatible Ebola Virus Disease symptoms. Initial Sepsis Screen: Does the patient meet any 2 criteria? No. Patient's initial sepsis screen is negative. Does the patient have a suspected source of infection? No. Patient's initial sepsis screen is negative. Risk Assessment: Do you want to hurt yourself or someone else? Patient reports no desire to harm self or others. Onset of symptoms was September 2020. 12:40 Method Of Arrival: Ambulatory aa5 Triage Assessment: 15:00 General: Appears in no apparent distress. Behavior is calm. Pain: Complains of pain in ld1 right upper quadrant. 15:00 GI: Abdomen is round non-distended. 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 - Social history:: Smoking status: Reported history of juuling and/or vaping. Screenin:00 Abuse screen: Denies threats or abuse. Denies injuries from another. Nutritional ld1 screening: No deficits noted. Tuberculosis screening: No symptoms or risk factors identified. Fall Risk None identified. Assessment: 22:32 GI: Bowel sounds present X 4 quads. Abd is soft Abdomen is tender to palpation X 4 ld1 quads. Vital Signs: 12:40 BP 111 / 76; Pulse 82; Resp 18 S; Temp 97.2(TE); Pulse Ox 99% on R/A; Weight 92.99 kg aa5 (R); Height 4 ft. 11 in. (149.86 cm) (R); Pain 5/10; 12:40 Body Mass Index 41.40 (92.99 kg, 149.86 cm) aa5 ED Course: 12:09 Patient arrived in ED. as 12:41 Arm band placed on. aa5 12:43 Triage completed. aa5 14:52 Juana Loyola FNP-C is PHCP. kb 14:52 Rhett Edgar MD is Attending Physician. kb 14:53 Yumi Myles RN is Primary Nurse. tr6 14:55 Rhett Pham PA is PHCP. kb 16:16 CT Abd/Pelvis - IV Contrast Only In Process Unspecified. EDND 18:35 COVID-19 : Document "Date of Symptom Onset" if Symptomatic. Sent. [facility] 18:36 COVID swab sent to lab. [facility] 18:42 Cr Rodriguez is Hospitalizing Provider. cp 22:31 No provider procedures requiring assistance completed. Patient admitted, IV remains in ld1 place. intact, bleeding controlled, No redness/swelling at site. 22:32 Patient has correct armband on for positive identification. Bed in low position. Call ld1 light in reach. Side rails up X2. Pulse ox on. NIBP on. Administered Medications: 15:11 Drug: NS 0.9% 1000 ml Route: IV; Rate: 1 bolus; Site: left antecubital; tr6 16:56 Drug: Rocephin (cefTRIAXone) 1 grams Route: IV; Rate: calculated rate; Site: left tr6 antecubital; 19:21 Drug: Zosyn (piperacillin-tazobactam) 3.375 grams Route: IVPB; Infused Over: 60 mins; tr6 Site: left antecubital; Outcome: 18:35 ER care complete, transfer ordered by MD. cp 18:44 Decision to Hospitalize by Provider. cp 22:32 Admitted to Med/surg accompanied by nurse, via wheelchair, room 229, with chart, Report ld1 called to GAIL Mayorga 22:32 Condition: stable 22:32 Patient left the ED. ld1 Signatures: Dispatcher [employer] EDMS Juana Loyola FNP-Joey ELECTRONICS MANUFACTURER-Amy Adan Audri, RN RN aa5 Rhett Pham PA PA cp Martinez, Maria [facility] Briana Grajeda RN RN ld1 Yumi Myles RN RN tr6 Corrections: (The following items were deleted from the chart) : 12:40 BP 111 / 76; Pulse 82bpm; Resp 18bpm; Spontaneous; Pulse Ox 99% RA; Temp 97.2F aa5 Temporal; aa5 : 12:43 PSHx: None; aa5 aa5
--- NOTE | 2020-10-07 18:36 | EDPHYS ---
Physician Documentation [facility] Name: Tammy Mckinley Age: 35 yrs Sex: Female : 1985 Arrival Date: 10/07/2020 Time: 12:09 Bed 25 Private MD: VINCENT Physician Rhett Edgar HPI: 10/07 15:05 This 35 yrs old Female presents to ER via Ambulatory with complaints of cp Abdominal Pain. 15:05 The patient presents with abdominal pain in the lower abdomen. Onset: The cp symptoms/episode began/occurred 4 day(s) ago. The symptoms radiate to right back. Associated signs and symptoms: Pertinent positives: nausea and vomiting, dysuria. The symptoms are described as waxing/waning. 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 - Social history:: Smoking status: Reported history of juuling and/or vaping. ROS: 15:10 Constitutional: Negative for body aches, chills, fever, poor PO intake. cp 15:10 Eyes: Negative for injury, pain, redness, and discharge. cp 15:10 Respiratory: Negative for cough, shortness of breath, wheezing. 15:10 Abdomen/GI: Positive for abdominal pain, nausea and vomiting, Negative for diarrhea, constipation, black/tarry stool, rectal bleeding. 15:10 : Positive for urinary frequency, Negative for vaginal bleeding. 15:10 Neuro: Negative for altered mental status, headache, weakness. 15:10 All other systems are negative. Exam: 15:15 Constitutional: The patient appears in no acute distress, alert, awake, non-toxic, well cp developed, well nourished, obese. 15:15 Head/Face: Normocephalic, atraumatic. cp 15:15 Eyes: Periorbital structures: appear normal, Conjunctiva: normal, no exudate, no injection, Sclera: no appreciated abnormality, Lids and lashes: appear normal, bilaterally. 15:15 ENT: External ear(s): are unremarkable, Nose: is normal, Mouth: Lips: moist, Oral mucosa: moist, Posterior pharynx: Airway: no evidence of obstruction, patent. 15:15 Chest/axilla: Inspection: normal. 15:15 Cardiovascular: Rate: normal, Rhythm: regular, JVD: is not appreciated. 15:15 Respiratory: the patient does not display signs of respiratory distress, Respirations: normal, no use of accessory muscles, no retractions, labored breathing, is not present, Breath sounds: are clear throughout, no decreased breath sounds, no stridor, no wheezing. 15:15 Abdomen/GI: Inspection: abdomen appears normal, Bowel sounds: active, all quadrants, Palpation: soft, in all quadrants, mild abdominal tenderness, in the right upper quadrant, right lower quadrant and left lower quadrant, rebound tenderness, is not appreciated, involuntary guarding, is not appreciated. 15:15 Back: CVA tenderness. 15:15 Skin: no rash present. Vital Signs: 12:40 BP 111 / 76; Pulse 82; Resp 18 S; Temp 97.2(TE); Pulse Ox 99% on R/A; Weight 92.99 kg aa5 (R); Height 4 ft. 11 in. (149.86 cm) (R); Pain 5/10; 12:40 Body Mass Index 41.40 (92.99 kg, 149.86 cm) aa5 MDM: 14:52 Patient medically screened. kb 15:00 Differential diagnosis: appendicitis, cholecystitis, Cholelithiasis, gastritis, cp pancreatitis, Peptic Ulcer Disease, Perf. Duodenal Ulcer, Perf. Gastric Ulcer, Pelvic Inflammatory Disease, Pyelonephritis, Ureterolithiasis, urinary tract infection. 17:30 Data reviewed: vital signs, nurses notes, lab test result(s), radiologic studies, CT cp scan. 17:30 Counseling: I had a detailed discussion with the patient and/or guardian regarding: the cp historical points, exam findings, and any diagnostic results supporting the discharge/admit diagnosis, lab results, radiology results. 17:44 Physician consultation: Mingo Dixon MD was contacted at 17:45, regarding patient's cp condition, after a discussion of the case, a recommendation for transfer for higher level of care is made. 18:35 Physician consultation: Mingo Dixon MD was contacted at 18:35, regarding admission, to cp the medical/surgical unit. TOMAS Edgar consulted with DR Dixon who requests admittance to services of hospitalist and will see patient in morning. 10/07 14:58 Order name: Basic Metabolic Panel; Complete Time: 16:08 10/07 16:08 Interpretation: Normal except: NA 135; GLUC 72. 10/07 14:58 Order name: CBC with Diff; Complete Time: 15:45 10/07 15:45 Interpretation: Normal except: MCV 91.8. 10/07 14:58 Order name: Hepatic Function; Complete Time: 16:08 10/07 16:08 Interpretation: Normal except: AST 106; ALT 120; BILID 0.3; GLOB 4.3; A/G 0.8. 10/07 14:58 Order name: Lipase; Complete Time: 16:08 10/07 14:58 Order name: Urine Microscopic Only; Complete Time: 15:45 10/07 15:46 Interpretation: Reviewed. 10/07 14:59 Order name: Urine Dipstick-Ancillary; Complete Time: 15:45 [facility] 10/07 15:45 Interpretation: Normal except: UKET Trace; U NIT Positive. 10/07 15:00 Order name: CT Abd/Pelvis - IV Contrast Only; Complete Time: 16:32 10/07 15:03 Order name: Test, Serum; Complete Time: 15:46 [facility] 10/07 15:46 Interpretation: Reviewed. 10/07 17:57 Order name: COVID-19 : Document "Date of Symptom Onset" if Symptomatic. [facility] 10/07 20:22 Order name: SARS-COV-2 RT PCR; Complete Time: 22:07 [facility] 10/07 14:58 Order name: IV Saline Lock; Complete Time: 15:11 10/07 14:58 Order name: Labs collected and sent; Complete Time: 15:11 10/07 14:58 Order name: Urine Dipstick-Ancillary (obtain specimen); Complete Time: 15:01 10/07 14:58 Order name: Urine Test (obtain specimen); Complete Time: 15:01 10/07 17:57 Order name: NPO; Complete Time: 18:35 10/07 18:41 Order name: Diet Clear Liquid; Complete Time: 18:43 10/07 18:43 Order name: NPO: Clears until Midnight, NPO After Midnight; Complete Time: 19:16 la1 Administered Medications: 15:11 Drug: NS 0.9% 1000 ml Route: IV; Rate: 1 bolus; Site: left antecubital; tr6 16:56 Drug: Rocephin (cefTRIAXone) 1 grams Route: IV; Rate: calculated rate; Site: left tr6 antecubital; 19:21 Drug: Zosyn (piperacillin-tazobactam) 3.375 grams Route: IVPB; Infused Over: 60 mins; tr6 Site: left antecubital; Disposition: 10/08 06:29 Co-signature as Attending Physician, Rhett Edgar MD I agree with the assessment and john plan of care. Disposition Summary: 10/07/20 18:44 Hospitalization Ordered Hospitalization Status: Inpatient Admission cp Provider: Cr Rodriguez cp Location: Telemetry/MedSur (Inpatient) cp Condition: Stable(10/07/20 18:44) cp Problem: new(10/07/20 18:44) cp Symptoms: have improved(10/07/20 18:44) cp Bed/Room Type: Standard cp Room Assignment: 229(10/07/20 22:06) tt3 Diagnosis - Calculus of gallbladder with acute cholecystitis with obstruction cp Forms: - Medication Reconciliation Form cp - SBAR form cp Signatures: Dispatcher [employer] EDJuana Adrian, TYC RIZWANA-Rhett Lezama MD MD cha Calderon, Audri RN RN aa5 Jose Yuen FNP-C STUDENT TEACHER-Cla1 Gilma Lee RN RN tl1 Rhett Pham PA PA cp Trim, Tyler tt3 Yumi Myles RN RN tr6 Corrections: (The following items were deleted from the chart) 10/07 12:44 12:43 PSHx: None; aa5 aa5 18:42 17:57 CORONAVIRUS ordered. EDNJ EDMS 18:42 18:35 Doctor cp cp 18:42 18:35 Other Acute Care Facility cp cp 18:42 18:35 Higher level of care cp cp 18:42 18:35 Stable cp cp 18:42 18:35 new cp cp 18:42 18:35 have improved cp cp 18:42 18:35 Acute cholecystitis cp cp 18:42 18:35 Abnormal results of liver function studies cp cp 21:37 18:44 cp tl1 22:06 21:37 216 tl1 tt3
[2020-10-07] MEDS ORDERED: NA CHLORIDE 0.9% 50 ML ONE (19:18)
[2020-10-07] MEDS ORDERED: PIPERACIL/TAZO 3.375 GM VIAL IV ONE (19:18)
--- NOTE | 2020-10-07 19:30 | P.HP ---
Certification for Inpatient Patient admitted to: Observation With expected LOS: <2 Midnights Patient will require the following post-hospital care: None Practitioner: I am a practitioner with admitting privileges, knowledge of patient current condition, hospital course, and medical plan of care. Services: Services provided to patient in accordance with Admission requirements found in Title 42 Section 412.3 of the Code of Federal Regulations Patient History Date of Service: 10/07/20 Reason for admission: Cholecystitis History of Present Illness: 35-year-old female with no significant past medical history presents the emergency department for abdominal pain. Patient was evaluated in the emergency department, labs were significant for AST 106 ALT 120 urinalysis nitrite positive no bacteria noted CT abdomen pelvis demonstrated cholelithiasis with a stone impacted near the gallbladder neck and mild pericholecystic stranding concerning for acute cholecystitis. Case was then discussed with general surgery who recommended transfer for possible choledocholithiasis given elevated AST and ALT, transfer was initiated but declined at all facilities in the [facility] area due to lack of capacity. Case was again discussed with general surgery who recommended admission with MRCP in the morning for further evaluation to rule out choledocholithiasis. When I saw the patient in the ER she was awake, alert, oriented x3. Patient with mild lower abdominal tenderness but no specific right upper quadrant or epigastric tenderness on exam at this time. Allergies No Known Allergies Allergy (Verified 04/12/12 08:28) - Past Medical/Surgical History -: Exposure to tuberculosis -: Psychosocial/ Personal History: Lives with family, currently unemployed - Family History Mother -: Cancer Notes: Hypothyroidism Father -: Hypertension, Liver disease - Social History Smoking Status: Never smoker Alcohol use: Yes CD- Drugs: No Caffeine use: Yes Place of Residence: Home Review of Systems 10-point ROS is otherwise unremarkable Gastrointestinal: Abdominal Pain Physical Examination - Physical Exam General: Alert, In no apparent distress, Oriented x3 HEENT: Atraumatic, PERRLA, Mucous membr. moist/pink, EOMI, Sclerae nonicteric Neck: Supple, 2+ carotid pulse no bruit, No LAD, Without JVD or thyroid abnormality Respiratory: Clear to auscultation bilaterally, Normal air movement Cardiovascular: Regular rate/rhythm, Normal S1 S2 Gastrointestinal: Normal bowel sounds, No rebound, No guarding, Tenderness (Mild lower abdominal tenderness) Musculoskeletal: No tenderness Integumentary: No rashes Neurological: Normal speech, Normal strength at 5/5 x4 extr, Normal tone, Normal affect - Studies Laboratory Data (last 24 hrs) 10/07/20 15:07: WBC 6.90, Hgb 14.0, Hct 41.2, Plt Count 206 10/07/20 15:07: Sodium 135 L, Potassium 3.7, BUN 7, Creatinine 0.73, Glucose 72 L, Total Bilirubin 0.7, AST 106 H, ALT 120 H, Alkaline Phosphatase 87, Lipase 119 Assessment and Plan - Plan Assessment: Acute cholecystitis with elevated LFTs Plan: Acute cholecystitis with elevated LFTs: N.p.o. after midnight, IV antibiotics, IV fluids, as needed pain medications. MRCP in the morning to rule out choledocholithiasis. General surgery consulted, will manage. Patient with mild abdominal tenderness to lower abdomen at this time, doing well. DVT PPX: SCD Code status: Full Discharge Plan: Home Plan to discharge in: 24 Hours - Advance Directives Does patient have a Living Will: No Does patient have a Durable POA for Healthcare: No - Code Status/Comfort Care Code Status Assessed: Yes (Full code) Critical Care: No Time Spent Managing Pts Care (In Minutes): 55
[2020-10-07] MEDS ORDERED: MORPHINE 2 MG/ML SYR IV PRN (22:35)
[2020-10-07] MEDS ORDERED: ONDANSETRON 4 MG/2 ML VIAL IV PRN (22:35)
[2020-10-07] MEDS ORDERED: KCL 20 MEQ/100 mL IVPB 20 MEQ/100 ML BAG IV SCH (23:00)
[2020-10-07] MEDS: NA CHLORIDE 0.9% 1,000 ML IV SCH (23:38)
[2020-10-08 00:40] LABS: Urine Appearance CLEAR (Clear); Urine Bilirubin NEGATIVE (Negative); Urine Blood NEGATIVE (Negative); Urine Color YELLOW (Yellow); Urine Glucose NEGATIVE (Negative); Urine Protein NEGATIVE (Negative); Urine Specific Gravity <=1.005 (1.005-1.030)
[2020-10-08 00:42] LABS: Urine Microscopic Reflex NO UMIC
[2020-10-08] MEDS ORDERED: PIPERACIL/TAZO 3.375 GM VIAL IV ONE ×2 (01:02→05:22)
[2020-10-08] MEDS ORDERED: NA CHLORIDE 0.9% 100 ML ONE ×2 (01:03→05:17)
[2020-10-08 01:20] VITALS: BMI 41.6
[2020-10-08] MEDS: PIPER/TAZO/NS 3.375gm 3.375 GM/100 ML BAG IVPB SCH ×4 (05:36→17:03)
[2020-10-08 05:56] LABS: Absolute Lymphocytes (CBC) 1.8 K/uL (0.7-4.9); Basophils % 0.8 % (0-1.3); Hematocrit 39.6 % (36.0-45.0); Lymphocytes % 27.4 % (15.3-44.8); MPV 8.2 fL (7.6-11.3); RBC Red Blood Cell Count 4.32 M/uL (3.86-4.86)
[2020-10-08 06:09] LABS: ALT/SGPT 97 U/L (12-78); AST/SGOT 89 U/L (15-37); Alkaline Phosphatase 66 U/L (45-117); BUN Blood Urea Nitrogen 4 mg/dL (7-18); Bicarbonate 23 mmol/L (21-32); Bilirubin Total 0.9 mg/dL (0.2-1.0); Glucose Level 78 mg/dL (74-106); Potassium 4.1 mmol/L (3.5-5.1); Protein, Total 6.8 g/dL (6.4-8.2); Sodium Level 140 mmol/L (136-145)
--- NOTE | 2020-10-08 10:27 | RAD REPORT ---
EXAM DESCRIPTION: MRICholangiogram10/08/2020 8:18 am CLINICAL HISTORY: Abdominal pain COMPARISON: October 07, 2020 CT TECHNIQUE: Magnetic resonance cholangiogram was performed.3D MIP reconstruction performed FINDINGS: Cholelithiasis. 13 millimeter stone within the neck of the gallbladder likely is impacted. Mild gallbladder wall thickening. The gallbladder is distended. The biliary tree is normal caliber without a filling defect. Pancreatic duct is normal caliber IMPRESSION: Cholelithiasis with gallbladder distention. Thickened gallbladder wall probably indicates cholecystitis
[2020-10-08] MEDS: NA CHLORIDE 0.9% 1,000 ML IV SCH ×2 (11:23→17:05)
[2020-10-08] MEDS ORDERED: Ringers Lactate 1,000 ML IV ONE ×3 (12:35→16:05)
--- NOTE | 2020-10-08 13:15 | CON ---
Reason: Abdominal pain. History Of Present Illness: The patient is a 35-year-old female, comes in with biliary colic, niesha kim last Sunday, associated with nausea and vomiting, with pain in the lower abdomen, postprandial i n nature. The pain started yesterday and she had a workup done. There was evidence of acute cholecy stitis. Her LFTs were elevated, and an MRCP was done which was negative for common bile duct stone. Her pain is a little better with parenteral pain management. No sore throat, runny nose, cough, hea daches, or dizziness. No chest pain. No fever or chills. No diarrhea or constipation. No blood in her stool. No dysuria or hematuria. Review of Systems: Otherwise unremarkable. Past Medical History: Exposure to TB. Past Surgical History: C-sections x3. Allergies: RIFAMPIN. Social History: The patient does not smoke. Drinks occasionally. Family History: Significant for hypertension and cancer of unknown type in the mother. Father with hypertension and liver disease. Physical Examination: Vital Signs: Stable. She is currently afebrile. General: She is awake, alert, and oriented x3. Head and Neck: Cranial nerves 2 through 12 grossly within normal limits. No neck masses. No JVD. Throat clear. Neck is supple. Chest: Clear. Heart: S1 and S2. Abdomen: Soft, nondistended. Positive right upper quadrant tenderness, right middle quadrant tender ness. No rebound, rigidity, or guarding. Extremities: Adequately perfused. Nontender. Neurological: Nonfocal. Laboratory Data: White count is normal. Chemistry initially showed AST and ALT of 106 and 120. Thi s morning, it is [address] shows cholelithiasis with a stone impacted near the ga llbladder neck. Mild pericholecystic stranding, concerning for acute cholecystitis. An MRCP is nega tive for common bile duct stone. Assessment: 35-year-old female with acute cholecystitis and cholelithiasis. Plan: Admit n.p.o., IV fluid, IV antibiotic, to the OR for laparoscopic cholecystectomy, possible op en. The patient understands the risks, benefits, and alternatives and agrees to procedure. /MODL Voice ID: [id number] Report ID: [id number]
--- NOTE | 2020-10-08 13:40 | P.PN ---
Subjective Date of Service: 10/08/20 Chief Complaint: Cholecystitis Patient states abdominal pain is better. No fever. She denies any nausea. Physical Examination - Vital Signs Temperature: 96.8 F Blood Pressure: 124/73 Pulse: 77 Respirations: 18 Pulse Ox (%): 100 - Physical Exam General: Alert, In no apparent distress, Oriented x3 HEENT: Mucous membr. moist/pink Neck: JVD not distended Respiratory: Clear to auscultation bilaterally, Normal air movement Cardiovascular: No edema, Regular rate/rhythm, Normal S1 S2 Gastrointestinal: Soft and benign, Non-distended, Tenderness (Mild epigastric pain and RUQ tenderness.) Musculoskeletal: No swelling, No tenderness Integumentary: No rashes Neurological: Normal strength at 5/5 x4 extr - Studies Laboratory Data (last 24 hrs) 10/08/20 05:16: Sodium 140, Potassium 4.1, BUN 4 L, Creatinine 0.60, Glucose 78, Total Bilirubin 0.9, AST 89 H, ALT 97 H, Alkaline Phosphatase 66 10/08/20 05:16: WBC 6.70, Hgb 13.6, Hct 39.6, Plt Count 197 10/07/20 15:07: WBC 6.90, Hgb 14.0, Hct 41.2, Plt Count 206 10/07/20 15:07: Sodium 135 L, Potassium 3.7, BUN 7, Creatinine 0.73, Glucose 72 L, Total Bilirubin 0.7, AST 106 H, ALT 120 H, Alkaline Phosphatase 87, Lipase 1 19 Assessment And Plan - Current Problems (Diagnosis) (1) Acute cholecystitis Current Visit: Yes Status: Acute (2) LFT elevation Current Visit: Yes Status: Acute - Plan MRCP shows no choledocholithiasis. Patient scheduled for lap cholecystectomy today. Monitor liver enzymes. Pain management as needed. Empiric IV Zosyn.
[2020-10-08] MEDS ORDERED: propofoL 200 MG/20 ML VIAL IV ONE ×2 (13:51→14:04)
[2020-10-08] MEDS ORDERED: FENTANYL CITR 100 MCG/2 ML ONE ×2 (13:51→14:04)
[2020-10-08] MEDS ORDERED: dexAMETHasone 10 MG/ML VIAL ONE (13:51)
[2020-10-08] MEDS ORDERED: ROCURONIUM 50 MG/5 ML VIAL IV ONE ×2 (13:51→14:05)
[2020-10-08] MEDS ORDERED: KETOROLAC 30 MG/ML INJ ONE (13:52)
[2020-10-08] MEDS ORDERED: LIDOCAINE 2% MPF 5 ML VIAL ONE (13:52)
[2020-10-08] MEDS ORDERED: MIDAZOLAM HCL 2 MG/2 ML INJ ONE ×2 (13:52→14:04)
[2020-10-08] MEDS ORDERED: ONDANSETRON 4 MG/2 ML VIAL ONE (13:52)
[2020-10-08] MEDS ORDERED: BUPIVACAINE 0.5% Inj,MDV 50 mL VIAL ONE (14:04)
[2020-10-08] MEDS ORDERED: LIDOCAINE 1% MPF 5 ML VIAL ONE (14:05)
[2020-10-08] MEDS ORDERED: GLYCOPYRROLATE 0.2 MG/ML SYR ONE (14:39)
--- NOTE | 2020-10-08 14:59 | P.OP ---
[facility] Quality Control Technician: William MANJARREZ Preoperative diagnosis: Acute Cholecystitis and Cholelithiasis Postoperative diagnosis: same Primary procedure: Lap Coreen Anesthesia: General Estimated blood loss: min Specimen: GB Findings: as above Complications: None Transferred to: Recovery Room Condition: Good
[2020-10-08] MEDS ORDERED: HYDROCODONE/APAP 7.5/325 MG TAB PO PRN (15:03)
[2020-10-08] MEDS ORDERED: NEOSTIGMINE 1 MG/ML -5 ML ONE (15:03)
[2020-10-08] MEDS ORDERED: ONDANSETRON 4 MG/2 ML VIAL IV PRN (15:03)
[2020-10-08] MEDS ORDERED: Mastisol Adhesive Liq ONE (15:13)
[2020-10-08] MEDS: MORPHINE 4 MG/ML SYR ONE ×2 (15:20→15:29)
[2020-10-08] MEDS ORDERED: PROMETHAZINE INJ 25 MG/ML AMP ONE (15:39)
[2020-10-08] MEDS: HYDROMORPHONE HCL 1 MG/ML INJ IV PRN ×2 (17:03→22:08)
--- NOTE | 2020-10-08 20:57 | OP ---
Date of Procedure: 10/08/2020 Surgeon: Mingo Dixon MD Legal Collector: William Vega, hand frame surgical elastic knitter certified. Preoperative Diagnosis: Acute cholecystitis and cholelithiasis. Postoperative Diagnosis: Acute cholecystitis and cholelithiasis. Procedure: Laparoscopic cholecystectomy. Estimated Blood Loss: Minimal. Specimen: Gallbladder. Finding: As above. Anesthesia: General. Complications: None. Disposition: The patient tolerated the procedure, in stable condition, taken to Recovery in good gen eral condition. Procedure In Detail: The patient was brought to the OR and placed in supine position. General anest hesia begun. The patient was prepped and draped in usual sterile fashion. Marcaine 0.5% was infiltrated locally. A 1 5 blade was used to make a 1 cm supraumbilical midline incision. Subcutaneous tissue was divided. T he fascia identified and divided. #1 Vicryl stay suture was placed. Peritoneal cavity was entered w ith sharp and blunt dissection. A 12 mm trocar was placed into the peritoneal cavity under direct vi zaida. Pneumoperitoneum was established and then three 5 trocars were placed, [address]astrium [address] to the right of midline, 2 in the right subcostal region. Laparoscopy revealed very large distend ed gallbladder. This was aspirated of white bile consistent with acute cholecystitis. Then, the fun dus was retracted superiorly. Infundibulum was identified and retracted inferolaterally. Cystic poly t and cystic artery were clearly identified with blunt dissection. Clips were placed. Both structur es were divided. Cautery was used to remove the gallbladder from the liver bed. Bleeding on the herb er bed was controlled with cautery. Gallbladder was retrieved through the umbilicus via an EndoCatch bag. Right upper quadrant was irrigated. Effluent was clear. No evidence of bleeding or bile leak age appreciated. Subsequently, all the trocars were removed under direct vision. Stay sutures were tied to each other to reapproximate the fascial defect. Subcutaneous wounds were irrigated. Bleedin g was controlled cautery. 4-0 Monocryl was used to reapproximate the subcutaneous tissue and close t he skin. Sterile dressing was applied. Patient was awakened and taken to Recovery in good general c ondition. /MODL Voice ID: [id number] Report ID: [id number]
[2020-10-09] MEDS: PIPER/TAZO/NS 3.375gm 3.375 GM/100 ML BAG IVPB SCH ×2 (00:14→07:50)
[2020-10-09] MEDS: HYDROMORPHONE HCL 1 MG/ML INJ IV PRN (02:13)
[2020-10-09] MEDS: NA CHLORIDE 0.9% 1,000 ML IV SCH (02:16)
[2020-10-09 02:56] VITALS: O2SAT 97
[2020-10-09 06:36] LABS: Absolute Lymphocytes (CBC) 1.1 K/uL (0.7-4.9); Basophils % 0.1 % (0-1.3); Hematocrit 39.1 % (36.0-45.0); Lymphocytes % 9.2 % (15.3-44.8); MPV 8.4 fL (7.6-11.3); RBC Red Blood Cell Count 4.25 M/uL (3.86-4.86)
[2020-10-09 06:41] LABS: ALT/SGPT 99 U/L (12-78); AST/SGOT 81 U/L (15-37); Albumin 3.2 g/dL (3.4-5.0); Alkaline Phosphatase 64 U/L (45-117); BUN Blood Urea Nitrogen 2 mg/dL (7-18); Bicarbonate 21 mmol/L (21-32); Bilirubin Total 0.6 mg/dL (0.2-1.0); Glucose Level 107 mg/dL (74-106); Magnesium 2.1 mg/dL (1.8-2.4); Phosphorus 2.6 mg/dL (2.5-4.9); Potassium 4.4 mmol/L (3.5-5.1); Protein, Total 7.3 g/dL (6.4-8.2); Sodium Level 139 mmol/L (136-145)
[2020-10-09 08:31] LABS: Blood Morphology Comment NOT SEEN (NOT SEEN); Platelet Estimate ADEQ; White Blood Cell Scan OK (OK)
--- NOTE | 2020-10-09 08:49 | PN ---
Date of Progress Note: 10/09/2020 Subjective: The patient is awake, alert, tolerating diet, pain controlled on oral pain medicines, am bulating, afebrile. The patient to be discharged home later today. Objective: Vital Signs: Stable and afebrile. Abdomen: Benign. Assessment: Status post laparoscopic cholecystectomy. Recommendations: Discharged. Followup in my office in 1 week. Discharge instructions given. JONATHAN/CHINA Voice ID: [id number] Report ID: [id number]
[2020-10-09 09:35] VITALS: BP 103/66; TEMP 98.6
--- NOTE | 2020-10-10 17:44 | P.DS ---
Admission Date: 10/08/20 Discharge Date: 10/09/20 Disposition: ROUTINE DISCHARGE Discharge Condition: GOOD Reason for Admission: Cholecystitis - Problems (1) Acute cholecystitis Status: Acute (2) LFT elevation Status: Acute Brief History of Present Illness: 35-year-old female with no significant past medical history presents the emergency department for abdominal pain. Patient noted to have elevated LFT in the ED. CT abdomen pelvis demonstrated cholelithiasis with a stone impacted near the gallbladder neck and mild pericholecystic stranding concerning for acute cholecystitis. Patient admitted for further management. Hospital Course: Supportive measures done with IV fluid. MRCP was done with no show any choledocholithiasis. Patient seen by general surgery Dr. Dixon will performed laparoscopic cholecystectomy. Patient monitored briefly after the procedure and then cleared for discharge by surgery. Vital Signs/Physical Exam: Temp Pulse Resp BP Pulse Ox 98.6 F 70 18 103/66 99 10/09/20 08:00 10/09/20 08:00 10/09/20 08:57 10/09/20 08:00 10/09/20 08:57 Laboratory Data at Discharge: WBC 11.60 K/uL (4.3-10.9) H D 10/09/20 05:56 Hgb 13.3 g/dL (12.0-15.0) 10/09/20 05:56 Hct 39.1 % (36.0-45.0) 10/09/20 05:56 Plt Count 200 K/uL (152-406) 10/09/20 05:56 Sodium 139 mmol/L (136-145) 10/09/20 05:56 Potassium 4.4 mmol/L (3.5-5.1) 10/09/20 05:56 BUN 2 mg/dL (7-18) L 10/09/20 05:56 Creatinine 0.60 mg/dL (0.55-1.3) 10/09/20 05:56 Glucose 107 mg/dL (74-106) H 10/09/20 05:56 Phosphorus 2.6 mg/dL (2.5-4.9) 10/09/20 05:56 Magnesium 2.1 mg/dL (1.8-2.4) 10/09/20 05:56 Total Bilirubin 0.6 mg/dL (0.2-1.0) 10/09/20 05:56 AST 81 U/L (15-37) H 10/09/20 05:56 ALT 99 U/L (12-78) H 10/09/20 05:56 Alkaline Phosphatase 64 U/L (45-117) 10/09/20 05:56 Lipase 119 U/L (73-393) 10/07/20 15:07 Home Medications: Apple Ciger Vinegar Gummies 1 tab PO DAILY 10/08/20 Ibuprofen [Ibu] 800 mg PO BID 10/08/20 Melatonin 10mg Gummies 1 tab PO BEDTIME 10/08/20 Codeine/APAP [Tylenol W/Codeine #3 tab] 1 tab PO Q4HP PRN #40 tab 10/09/20 New Medications: Codeine/APAP [Tylenol W/Codeine #3 tab] 1 tab PO Q4HP PRN #40 tab PRN Reason: Pain Physician Discharge Instructions: May shower in am Keep steri-strips on at all times Diet: Regular Activity: No lifting more than 10 lbs Followup: NONE,NONE [Primary Care Provider] - Mingo Dixon MD [ACTIVE - CAN ADMIT] - 1 Week Time spent managing pt's care (in minutes): 25
== END 2020-10-09 10:34 | disposition home or self-care (01) | DRG 419 ==
LOC: ER 12:07 → ERHOLD 19:21 → 2ND 22:09 → OBSVTOIN 10-08 09:16
PROVIDERS: ADMIT Internal Medicine; ATTEND Internal Medicine
PROC: 0FT44ZZ Resection of Gallbladder, Percutaneous Endoscopic Approach (ICD-10-PCS; principal; 2020-10-08 14:15)
DX: K80.00 Calculus of gallbladder with acute cholecystitis without obstruction (principal); R79.89 Other specified abnormal findings of blood chemistry; Z20.822 Contact with and (suspected) exposure to COVID-19
CPT/HCPCS: 36415; 74177; 74181; 80048; 80053; 80076; 81003; 81015; 83690; 83735; 84100; 84703; 85025; 88304; 94010; 96374; 96375; 99285; G0378; J0696; J1100; J1170; J2250; J2405; J2543; J2550; J2704; J2710; J3010; J3480; J7030; J7120; Q9967; U0003

== ENCOUNTER 2021-07-10 08:14 | Emergency (ER) | payer SELFPAY ==
[2021-07-10 08:50] LABS: Urine Blood 2+ (Negative); Urine Glucose Negative (Negative); Urine Protein 2+ (Negative); Urine Specific Gravity 1.025 (1.005-1.030); Urine pH 6.5 (5.0-7.0)
[2021-07-10 08:51] LABS: Absolute Lymphocytes (CBC) 1.6 K/uL (0.7-4.9); Hematocrit 39.5 % (36.0-45.0); Lymphocytes % 18.7 % (15.3-44.8); RBC Red Blood Cell Count 4.29 M/uL (3.86-4.86)
[2021-07-10 09:02] LABS: Urine RBC 20-50 /HPF (NONE SEEN)
[2021-07-10 09:03] LABS: Urine Bacteria 20-50 /HPF (<20)
--- NOTE | 2021-07-10 09:04 | RAD REPORT ---
EXAM DESCRIPTION: CT - Stone Protocol - 07/10/2021 8:57 am CLINICAL HISTORY: Flank pain. Abdominal pain COMPARISON: Abdomen Pelvis W Contrast dated 10/07/2020 TECHNIQUE: Axial images were obtained without oral or IV contrast. Lack of contrast limits solid org an and vascular assessment. The fwuid-tj-eich spans the entirety of the system partially obscuring uppermost abdomen and lung bases. Coronal reformatted images were obtained and reviewed. All CT scans are performed using dose optimization technique as appropriate and may include automated exposure control or mA/KV adjustment according to patient size. FINDINGS: The lower lung west are clear. Imaged portions of the liver and spleen show no suspicious findings on non-contrast imaging. The panc reas and adrenal glands are normal. No pathologic lymphadenopathy in the abdomen or pelvis. No urinary tract stones or obstructive uropathy. Mild thickened urinary bladder wall. No bowel obstruction, free air, free fluid or abscess. Normal appendix noted. No significant bony abnormality. IMPRESSION: No urinary tract stones or obstructive uropathy. Mildly thickened urinary bladder wall. Advise correlation the possibility of urinary tract infection.
[2021-07-10 09:06] LABS: Urine Specific Gravity/Preg 1.025 (1.005-1.030)
[2021-07-10] MEDS ORDERED: PHENAZOPYRIDINE 100MG TAB PO ONE (09:07)
[2021-07-10] MEDS ORDERED: CEFTRIAXONE 1000 MG/VIAL ONE (09:07)
[2021-07-10] MEDS ORDERED: NA CHLORIDE 0.9% 500 ML ONE (09:07)
[2021-07-10 09:20] LABS: ALT/SGPT 97 U/L (12-78); AST/SGOT 152 U/L (15-37); Albumin 3.4 g/dL (3.4-5.0); Alkaline Phosphatase 92 U/L (45-117); BUN Blood Urea Nitrogen 6 mg/dL (7-18); Bicarbonate 25 mmol/L (21-32); Glucose Level 83 mg/dL (74-106); Lipase 159 U/L (73-393); Potassium 3.3 mmol/L (3.5-5.1); Protein, Total 8.1 g/dL (6.4-8.2); Sodium Level 136 mmol/L (136-145)
--- NOTE | 2021-07-10 09:51 | EDPHYS ---
Physician Documentation [facility] Name: Tammy Mckinley Age: 36 yrs Sex: Female : 1985 Arrival Date: 07/10/2021 Time: 08:16 Bed 19 Private MD: ED Physician Hector Larry HPI: 07/10 11:06 This 36 yrs old Female presents to ER via Ambulatory with complaints of kdr Possible Kidney Stone. 11:06 Patient reports burning with urination for the last few days. She has had this kdr intermittently for the last year. She has not sought treatment previously. She is otherwise in good health and does not appear toxic or extremely ill in any way at this time. Onset: The symptoms/episode began/occurred 3 day(s) ago. Severity of symptoms: At their worst the symptoms were mild in the emergency department the symptoms are unchanged. The patient has experienced similar episodes in the past, multiple times. The patient has not recently seen a physician. 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 - Social history:: Smoking status: Reported history of juuling and/or vaping. ROS: 11:06 Constitutional: Negative for fever, chills, and weight loss, Eyes: Negative for injury, kdr pain, redness, and discharge, ENT: Negative for injury, pain, and discharge, Neck: Negative for injury, pain, and swelling, Cardiovascular: Negative for chest pain, palpitations, and edema, Respiratory: Negative for shortness of breath, cough, wheezing, and pleuritic chest pain, Abdomen/GI: Negative for abdominal pain, nausea, vomiting, diarrhea, and constipation, Back: Negative for injury and pain, MS/Extremity: Negative for injury and deformity, Skin: Negative for injury, rash, and discoloration, Neuro: Negative for headache, weakness, numbness, tingling, and seizure activity. Psych: Negative for depression, anxiety, suicide ideation, homicidal ideation, and hallucinations, Allergy/Immunology: Negative for hives, rash, and allergies, Endocrine: Negative for neck swelling, polydipsia, polyuria, polyphagia, and marked weight changes, Hematologic/Lymphatic: Negative for swollen nodes, abnormal bleeding, and unusual bruising. 11:06 : Positive for urinary symptoms, urinary frequency, small amounts, burning with urination, difficulty urinating. Exam: 11:06 Constitutional: This is a well developed, well nourished patient who is awake, alert, kdr and in no acute distress. Head/Face: Normocephalic, atraumatic. Eyes: Pupils equal round and reactive to light, extra-ocular motions intact. Lids and lashes normal. Conjunctiva and sclera are non-icteric and not injected. Cornea within normal limits. Periorbital areas with no swelling, redness, or edema. Neck: Trachea midline, no thyromegaly or masses palpated, and no cervical lymphadenopathy. Supple, full range of motion without nuchal rigidity, or vertebral point tenderness. No Meningismus. Chest/axilla: Normal chest wall appearance and motion. Nontender with no deformity. No lesions are appreciated. Cardiovascular: Regular rate and rhythm with a normal S1 and S2. No gallops, murmurs, or rubs. Normal PMI, no JVD. No pulse deficits. Respiratory: Lungs have equal breath sounds bilaterally, clear to auscultation and percussion. No rales, rhonchi or wheezes noted. No increased work of breathing, no retractions or nasal flaring. Abdomen/GI: Soft, non-tender, with normal bowel sounds. No distension or tympany. No guarding or rebound. No evidence of tenderness throughout. Back: No spinal tenderness. No costovertebral tenderness. Full range of motion. Skin: Warm, dry with normal turgor. Normal color with no rashes, no lesions, and no evidence of cellulitis. MS/ Extremity: Pulses equal, no cyanosis. Neurovascular intact. Full, normal range of motion. Neuro: Awake and alert, GCS 15, oriented to person, place, time, and situation. Cranial nerves II-XII grossly intact. Motor strength 5/5 in all extremities. Sensory grossly intact. Cerebellar exam normal. Normal gait. Psych: Awake, alert, with orientation to person, place and time. Behavior, mood, and affect are within normal limits. Vital Signs: 08:34 BP 135 / 76; Pulse 98; Resp 20; Temp 97.3; Pulse Ox 99% ; Weight 90.72 kg; Height 4 ft. lopes 11 in. (149.86 cm); 08:34 Body Mass Index 40.39 (90.72 kg, 149.86 cm) lopes MDM: 09:50 Patient medically screened. kdr 11:06 Data reviewed: vital signs, nurses notes, lab test result(s), radiologic studies. kdr Counseling: I had a detailed discussion with the patient and/or guardian regarding: the historical points, exam findings, and any diagnostic results supporting the discharge/admit diagnosis, lab results, radiology results, the need for outpatient follow up. 07/10 08:26 Order name: CBC with Diff; Complete Time: 09:48 kdr 07/10 08:26 Order name: CMP; Complete Time: 09:48 kdr 07/10 08:26 Order name: Lipase; Complete Time: 09:48 kdr 07/10 08:46 Order name: Urine Microscopic Only; Complete Time: 09:48 lopes 07/10 08:50 Order name: Urine Dipstick-Ancillary; Complete Time: 09:48 EDMS 07/10 08:53 Order name: Urine --Ancillary (enter results); Complete Time: 09:48 dh3 07/10 08:26 Order name: IV Saline Lock; Complete Time: 08:45 kdr 07/10 08:26 Order name: Labs collected and sent; Complete Time: 08:46 kdr 07/10 08:26 Order name: CT Stone Protocol; Complete Time: 09:48 kdr 07/10 09:06 Order name: Urine Culture EDMS Administered Medications: 09:08 Drug: NS 0.9% 500 ml Route: IV; Rate: bolus; Site: left antecubital; lopes 09:56 Follow up: IV Status: Completed infusion lopes 09:09 Drug: Pyridium (phenazopyridine) 200 mg Route: PO; lopes 09:56 Follow up: Response: No adverse reaction lopes 09:09 Drug: Rocephin - (cefTRIAXone) 1 grams Route: IVPB; Infused Over: 30 mins; Site: left lopes antecubital; 09:56 Follow up: IV Status: Completed infusion lopes 09:56 Drug: NS 0.9% 1000 ml Route: IV; Rate: 1 bolus; Site: left antecubital; lopes 10:53 Follow up: IV Status: Completed infusion lopes Disposition Summary: 05/01/22 09:50 Discharge Ordered Location: Home kdr Problem: new kdr Symptoms: have improved kdr Condition: Stable kdr Diagnosis - UTI/ Urinary tract infection, site not specified kdr - Nonspecific urethritis kdr Followup: kdr - With: Private Physician - When: 2 - 3 days - Reason: If symptoms return, Further diagnostic work-up, Recheck today's complaints, Continuance of care, Re-evaluation by your physician Discharge Instructions: - Discharge Summary Sheet kdr - Dysuria kdr - Urethritis, Adult kdr - Urinary Tract Infection, Adult, [id number] kdr Forms: - Medication Reconciliation Form kdr - Thank You Letter kdr - Antibiotic Education kdr - Prescription Opioid Use kdr - Work release form eb Prescriptions: - Pyridium 200 mg Oral Tablet - take 1 tablet by ORAL route every 8 hours for 3 days; 9 tablet; Refills: 0, kdr Product Selection Permitted - Tramadol 50 mg Oral Tablet - take 1 tablet by ORAL route every 8 hours as needed; 12 tablet; Refills: 0, kdr Product Selection Permitted - Bactrim DS 800-160 mg Oral Tablet - take 1 tablet by ORAL route every 12 hours for 10 days; 20 tablet; Refills: 0, kdr Product Selection Permitted Signatures: Dispatcher [employer] Hector Loza MD MD kdr Irene Newell RN RN lopes
--- NOTE | 2021-07-10 09:51 | ER ---
Nurse's Notes [facility] Name: Tammy Mckinley Age: 36 yrs Sex: Female : 1985 Arrival Date: 07/10/2021 Time: 08:16 Bed 19 Private MD: Diagnosis: UTI/ Urinary tract infection, site not specified;Nonspecific urethritis Presentation: 07/10 08:43 Chief complaint: Patient states: pt presented to ED with painful, burning, frequency lopes with urination. hx of kidney stones. Coronavirus screen: Vaccine status: Patient reports receiving the 2nd dose of the covid vaccine. Ebola Screen: Patient denies travel to an Ebola-affected area in the 21 days before illness onset. Initial Sepsis Screen: Does the patient meet any 2 criteria? HR > 90 bpm. No. Patient's initial sepsis screen is negative. Does the patient have a suspected source of infection? No. Patient's initial sepsis screen is negative. Risk Assessment: Do you want to hurt yourself or someone else? Patient reports no desire to harm self or others. Onset of symptoms was July 07, 2021. 08:43 Method Of Arrival: Ambulatory lopes 08:43 Acuity: VIOLET 3 lopes Triage Assessment: 08:43 General: Appears in no apparent distress. Behavior is calm, cooperative. 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 - Social history:: Smoking status: Reported history of juuling and/or vaping. Screenin:42 Abuse screen: Denies threats or abuse. Denies injuries from another. Nutritional lopes screening: No deficits noted. Tuberculosis screening: No symptoms or risk factors identified. Fall Risk IV access (20 points). Assessment: 08:41 Pain: Complains of pain in pelvis. GI: Bowel sounds present X 4 quads. Abd is soft and lopes non tender. : Reports burning with urination, cramping, pain with urination, Pain is 8 out of 10 on a pain scale. urgency, urinary frequency. Vital Signs: 08:34 BP 135 / 76; Pulse 98; Resp 20; Temp 97.3; Pulse Ox 99% ; Weight 90.72 kg; Height 4 ft. lopes 11 in. (149.86 cm); 08:34 Body Mass Index 40.39 (90.72 kg, 149.86 cm) lopes ED Course: 08:16 Patient arrived in ED. as 08:24 Hector Larry MD is Attending Physician. kdr 08:34 Irene Newell, GAIL is Primary Nurse. lopes 08:34 Arm band placed on. lopes 08:40 Urine collected: clean catch specimen, cloudy. 3 08:42 Patient has correct armband on for positive identification. Bed in low position. lopes 08:42 No provider procedures requiring assistance completed. Inserted saline lock: 20 gauge lopes in left antecubital area, using aseptic technique. 08:42 Initial lab(s) drawn, by sd, sent to lab. 3 08:44 Triage completed. lopes 08:49 Urine Microscopic Only Sent. 3 08:58 CT Stone Protocol In Process Unspecified. EDOK 10:54 IV discontinued, intact, Pressure dressing applied. lopes Administered Medications: 09:08 Drug: NS 0.9% 500 ml Route: IV; Rate: bolus; Site: left antecubital; lopes 09:56 Follow up: IV Status: Completed infusion lopes 09:09 Drug: Pyridium (phenazopyridine) 200 mg Route: PO; lopes 09:56 Follow up: Response: No adverse reaction 09:09 Drug: Rocephin - (cefTRIAXone) 1 grams Route: IVPB; Infused Over: 30 mins; Site: left lopes antecubital; 09:56 Follow up: IV Status: Completed infusion 09:56 Drug: NS 0.9% 1000 ml Route: IV; Rate: 1 bolus; Site: left antecubital; 10:53 Follow up: IV Status: Completed infusion lopes Outcome: 09:50 Discharge ordered by . kdr 10:53 Discharged to home ambulatory. lopes 10:53 Condition: good 10:53 Discharge instructions given to patient, Prescriptions given X 3. 10:54 Patient left the ED. lopes Signatures: Dispatcher [employer] EDMS Hector Larry MD MD kdr Martinez, Amelia as Herrera, Deanna 3 Irene Newell RN RN
[2021-07-10] MEDS ORDERED: NA CHLORIDE 0.9% 1,000 ML ONE (09:57)
[2021-07-10 11:07] VITALS: BP 135/76; TEMP 97.3; O2SAT 99
== END 2021-07-10 10:54 | disposition home or self-care (01) ==
LOC: ER 08:14
DX: N39.0 Urinary tract infection, site not specified (principal); Z88.3 Allergy status to other anti-infective agents
CPT/HCPCS: 36415; 74176; 76377; 80053; 81003; 81015; 81025; 83690; 85025; 87077; 87086; 87088; 87186; 96361; 96365; 99284; J7030; J7040

== ENCOUNTER 2021-12-27 21:10 | Emergency (ER) | payer SELFPAY ==
[2021-12-27] MEDS ORDERED: PROMETHAZINE INJ 25 MG/ML AMP ONE (22:36)
[2021-12-27] MEDS ORDERED: FAMOTIDINE 20 MG/2 ML VIAL IV ONE (22:36)
[2021-12-27] MEDS ORDERED: NA CHLORIDE 0.9% 1,000 ML ONE (22:36)
[2021-12-27 23:18] LABS: Urine Blood 3+ (Negative); Urine Glucose Negative (Negative); Urine Protein 1+ (Negative); Urine pH 8.5 (5.0-7.0)
[2021-12-27 23:20] LABS: Absolute Lymphocytes (CBC) 1.7 K/uL (0.7-4.9); Hematocrit 41.2 % (36.0-45.0); MCV 90.8 fL (80-100); MPV 8.3 fL (7.6-11.3); RBC Red Blood Cell Count 4.54 M/uL (3.86-4.86)
[2021-12-27 23:43] LABS: Albumin 3.4 g/dL (3.4-5.0); Bilirubin Total 0.9 mg/dL (0.2-1.0); Potassium 3.9 mmol/L (3.5-5.1); Protein, Total 8.5 g/dL (6.4-8.2)
--- NOTE | 2021-12-28 02:29 | ER ---
Nurse's Notes [facility] Name: Tammy Mckinley Age: 36 yrs Sex: Female : 1985 Arrival Date: 12/27/2021 Time: 21:15 Bed 7 Private MD: Diagnosis: Influenza due to identified novel influenza A virus with gastrointestinal manifestations Presentation: 12/27 21:38 Chief complaint: Patient states: Pt reports intermittent diffuse abdominal cramping x1 kb3 week with associated N/V/D. Eating makes pain and nausea better. Pt states sore throat all day today. Son was diagnosed with strep throat yesterday. Coronavirus screen: Vaccine status: Patient reports receiving the 2nd dose of the covid vaccine. Client denies travel out of the [place] in the last 14 days. Ebola Screen: Patient negative for fever greater than or equal to 101.5 degrees Fahrenheit, and additional compatible Ebola Virus Disease symptoms. Initial Sepsis Screen: Does the patient meet any 2 criteria? No. Patient's initial sepsis screen is negative. Does the patient have a suspected source of infection? No. Patient's initial sepsis screen is negative. Risk Assessment: Do you want to hurt yourself or someone else? Patient reports no desire to harm self or others. Onset of symptoms was December 20, 2021. 21:38 Method Of Arrival: Ambulatory kb3 21:38 Acuity: VIOLET 3 kb3 Triage Assessment: 21:44 General: Appears in no apparent distress. uncomfortable, ill, Behavior is calm, kb3 cooperative. Pain: Complains of pain in right upper quadrant, left upper quadrant, right lower quadrant and left lower quadrant Pain does not radiate. Pain currently is 6 out of 10 on a pain scale. Quality of pain is described as crampy, Pain began 1 week ago. GI: Abdomen is round. 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 - Social history:: Smoking status: Reported history of juuling and/or vaping. - Family history:: not pertinent. - Hospitalizations: : No recent hospitalization is reported. Screenin/19 01:59 Abuse screen: Denies threats or abuse. Denies injuries from another. Abuse screen: kd3 Denies threats or abuse. Nutritional screening: No deficits noted. Tuberculosis screening: No symptoms or risk factors identified. Fall Risk None identified. Assessment: 12/27 21:55 General: Appears uncomfortable, Behavior is calm, cooperative. Pain: Complains of pain kd3 in abdomen. Neuro: Level of Consciousness is awake, alert, obeys commands, Oriented to person, place, time, situation. Respiratory: Airway is patent Trachea midline Respiratory effort is even, unlabored, Respiratory pattern is regular, symmetrical. 23:00 Reassessment: Patient and/or family updated on plan of care and expected duration. Pain kd3 level reassessed. Patient is alert, oriented x 3, equal unlabored respirations, skin warm/dry/pink. Patient states feeling better. 23:45 General: pt seen resting quietly in bed, eyes closed . kd3 23:45 Reassessment: Patient and/or family updated on plan of care and expected duration. Pain kd3 level reassessed. Patient is alert, oriented x 3, equal unlabored respirations, skin warm/dry/pink. Patient states feeling better. Patient states symptoms have improved. 12/28 02:37 GI: Bowel sounds present X 4 quads. Abd is soft X 4 quads. kd3 Vital Signs: 12/27 21:38 BP 142 / 90; Pulse 86; Resp 20; Temp 97.3; Pulse Ox 100% ; Weight 86.18 kg; Height 4 kb3 ft. 11 in. (149.86 cm); Pain 6/10; 12/28 02:36 BP 135 / 82; Pulse 82; Resp 16; Pulse Ox 100% on R/A; kd3 12/27 21:38 Body Mass Index 38.37 (86.18 kg, 149.86 cm) kb3 ED Course: 12/27 21:15 Patient arrived in ED. ja2 21:18 Flex Brown MD is Attending Physician. rn 21:44 Triage completed. kb3 21:44 Arm band placed on right wrist. kb3 22:23 Edmond Veliz, GAIL is Primary Nurse. as6 23:09 SARS-COV-2 RT PCR (Document "Date of Onset" if Symptomatic) Sent. kd3 23:09 Flu Sent. kd3 23:09 CBC with Diff Sent. kd3 23:09 CMP Sent. kd3 23:09 Lipase Sent. kd3 23:19 Flu Sent. kd3 23:19 Lipase Sent. kd3 23:19 CMP Sent. kd3 23:19 CBC with Diff Sent. kd3 12/28 00:24 CT Abd/Pelvis - IV Contrast Only In Process Unspecified. EDMS 02:37 Patient has correct armband on for positive identification. kd3 02:37 No provider procedures requiring assistance completed. IV discontinued, intact, kd3 bleeding controlled, No redness/swelling at site. Pressure dressing applied. Administered Medications: 12/27 23:09 Drug: NS 0.9% 1000 ml Route: IV; Rate: 1 bolus; Site: right antecubital; kd3 12/28 02:38 Follow up: IV Status: Completed infusion; IV Intake: 1000ml kd3 12/27 23:09 Drug: Phenergan (promethazine) 12.5 mg Route: IVP; Site: right antecubital; kd3 23:34 Follow up: Response: No adverse reaction em6 23:10 Drug: Pepcid (famotidine) 20 mg Route: IVP; Site: right antecubital; kd3 12/28 02:38 Follow up: Response: No adverse reaction kd3 Medication: 02:37 VIS not applicable for this client. kd3 Intake: 02:38 IV: 1000ml; Total: 1000ml. kd3 Outcome: 02:28 Discharge ordered by . rn 02:37 Discharged to home ambulatory. kd3 02:37 Condition: stable 02:37 Discharge instructions given to patient, Instructed on discharge instructions, follow up and referral plans. medication usage, Demonstrated understanding of instructions, follow-up care, medications, Prescriptions given X 1. 02:38 Patient left the ED. kd3 Signatures: Dispatcher [employer] EDMS Flex Brown MD MD rn Alexander, Jessica ja2 Slawson, Ashby, RN RN as6 Bridget Diaz RN RN kd3 Mary Kay Morillo RN RN em6 Lashell Quintero RN RN kb3
--- NOTE | 2021-12-28 02:29 | EDPHYS ---
Physician Documentation [facility] Name: Tammy Mckinley Age: 36 yrs Sex: Female : 1985 Arrival Date: 12/27/2021 Time: 21:15 Bed 7 Private MD: ED Physician Flex Brown HPI: 12/27 22:25 This 36 yrs old Female presents to ER via Ambulatory with complaints of rn Abdominal Pain, Nausea. 22:25 The patient presents to the emergency department with nausea, vomiting, diarrhea, rn abdominal pain. Onset: The symptoms/episode began/occurred 1 week(s) ago. Possible causes: unknown. The symptoms are aggravated by nothing. The symptoms are alleviated by nothing. Associated signs and symptoms: Pertinent positives: abdominal pain, diarrhea, nausea, vomiting, Pertinent negatives: fever, GI bleeding. Severity of symptoms: At their worst the symptoms were moderate in the emergency department the symptoms are unchanged. The patient has not experienced similar symptoms in the past. The patient has not recently seen a physician. Pt reports 1 week of diffuse abd pain, assoc with nausea/vomiting/diarrhea. No blood in stool. Has had gallbladder removed. Also reports sore throat and son diagnosed with strep throat in last few days. . 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 - Social history:: Smoking status: Reported history of juuling and/or vaping. - Family history:: not pertinent. - Hospitalizations: : No recent hospitalization is reported. ROS: 22:25 Constitutional: Negative for fever, chills, and weight loss, Eyes: Negative for injury, rn pain, redness, and discharge, Neck: Negative for injury, pain, and swelling, Cardiovascular: Negative for chest pain, palpitations, and edema, Respiratory: Negative for shortness of breath, cough, wheezing, and pleuritic chest pain, Abdomen/GI: + abd pain/nausea/vomiting/diarrhea Back: Negative for injury and pain, : Negative for injury, bleeding, discharge, and swelling, MS/Extremity: Negative for injury and deformity, Skin: Negative for injury, rash, and discoloration, Neuro: Negative for headache, weakness, numbness, tingling, and seizure. Exam: 22:25 Constitutional: This is a well developed, well nourished patient who is awake, alert, rn and in no acute distress. Head/Face: Normocephalic, atraumatic. Cardiovascular: Regular rate and rhythm. No pulse deficits. Respiratory: No increased work of breathing, no retractions or nasal flaring. Abdomen/GI: soft, + tender over all quadrants, no peritoneal signs. Skin: Warm, dry MS/ Extremity: Pulses equal, no cyanosis. Neuro: Awake and alert, GCS 15 Vital Signs: 21:38 BP 142 / 90; Pulse 86; Resp 20; Temp 97.3; Pulse Ox 100% ; Weight 86.18 kg; Height 4 kb3 ft. 11 in. (149.86 cm); Pain 08/19; 12/28 02:36 BP 135 / 82; Pulse 82; Resp 16; Pulse Ox 100% on R/A; kd3 12/27 21:38 Body Mass Index 38.37 (86.18 kg, 149.86 cm) kb3 MDM: 12/27 21:18 Patient medically screened. rn 12/28 01:17 ED course: Influenza +, pending CT abdomen, tolerating PO, eating bag of chili cheese rn torin. . 02:27 Differential diagnosis: Nonspecific abd pain, gastritis, pancreatitis, appendicitis, rn diverticulitis, viral gastroenteritis, gastroenteritis. Data reviewed: vital signs, nurses notes, lab test result(s), radiologic studies, CT scan, and as a result, I will discharge patient. Counseling: I had a detailed discussion with the patient and/or guardian regarding: the historical points, exam findings, and any diagnostic results supporting the discharge/admit diagnosis, lab results, radiology results, the need for outpatient follow up, to return to the emergency department if symptoms worsen or persist or if there are any questions or concerns that arise at home. ED course: CT abdomen without acute findings.. 12/27 21:45 Order name: CBC with Diff; Complete Time: 23:21 rn 12/27 21:45 Order name: CMP; Complete Time: 00:01 rn 12/27 21:45 Order name: Lipase; Complete Time: 00:01 rn 12/27 21:45 Order name: Flu; Complete Time: 00: rn 12/27 21:45 Order name: SARS-COV-2 RT PCR (Document "Date of Onset" if Symptomatic); Complete Time: rn 00:12/27 23:18 Order name: Urine --Ancillary (enter results) mw2 12/27 21:45 Order name: CT Abd/Pelvis - IV Contrast Only rn 12/27 21:45 Order name: IV Saline Lock; Complete Time: 23: rn 12/27 21:45 Order name: Labs collected and sent; Complete Time: 23: rn 12/27 23:18 Order name: Urine Dipstick-Ancillary; Complete Time: 23:21 EDNM 12/27 23:19 Order name: Urine --Ancillary; Complete Time: 23:21 EDNM 12/27 21:45 Order name: Urine Dipstick-Ancillary (obtain specimen); Complete Time: 23:19 rn 12/27 21:45 Order name: Urine Test (obtain specimen); Complete Time: 23:19 rn Administered Medications: 12/27 23:09 Drug: NS 0.9% 1000 ml Route: IV; Rate: 1 bolus; Site: right antecubital; kd3 12/28 02:38 Follow up: IV Status: Completed infusion; IV Intake: 1000ml kd3 12/27 23:09 Drug: Phenergan (promethazine) 12.5 mg Route: IVP; Site: right antecubital; kd3 23:34 Follow up: Response: No adverse reaction em6 23:10 Drug: Pepcid (famotidine) 20 mg Route: IVP; Site: right antecubital; kd3 12/28 02:38 Follow up: Response: No adverse reaction kd3 Disposition Summary: 12/28/21 02:28 Discharge Ordered Location: Home rn Problem: new rn Symptoms: have improved rn Condition: Stable rn Diagnosis - Influenza due to identified novel influenza A virus with gastrointestinal rn manifestations Followup: rn - With: Private Physician - When: As needed - Reason: Recheck today's complaints, Re-evaluation by your physician Discharge Instructions: - Discharge Summary Sheet rn - Influenza, Adult rn Forms: - Medication Reconciliation Form rn - Thank You Letter rn - Antibiotic rn neurology - Prescription Opioid Use rn Prescriptions: - Tamiflu 75 mg Oral Capsule - take 1 tablet by ORAL route every 12 hours for 5 days; 10 tablet; Refills: 0, rn Product Selection Permitted Signatures: Dispatcher [employer] Flex Shaffer MD MD rn Doucette, Kyli, RN RN kd3 Lashell Quintero RN RN kb3 Mary Kay Morillo RN em6
[2021-12-28 02:46] VITALS: TEMP 97.3; O2SAT 100
[2021-12-28 02:47] VITALS: BP 135/82
--- NOTE | 2021-12-28 10:48 | RAD REPORT ---
EXAM DESCRIPTION: CT - Abdomen Pelvis W Contrast - 12/28/2021 12:15 am CLINICAL HISTORY: ABDOMINAL PAIN TECHNIQUE: Axial computed tomography images of the abdomen and pelvis with intravenous contrast. S agittal and coronal reformatted images were created and reviewed. This CT exam was performed using one or more of the following dose reduction techniques: automated exposure control, adjustment of t he mA and/or kV according to patient size, and/or use of iterative reconstruction technique. COMPARISON: CT Abdomen Pelvis dated 07/10/2021 FINDINGS: Lung bases: Unremarkable. No mass. No consolidation. ABDOMEN: Liver: The liver is mildly enlarged and low in density compatible with steatosis. Gallbladder and bile ducts: Prior cholecystectomy. No ductal dilation. Pancreas: Unremarkable. No mass. No ductal dilation. Spleen: The spleen is mildly enlarged. Adrenals: Unremarkable. No mass. Kidneys and ureters: Unremarkable. No solid mass. No hydronephrosis. Stomach and bowel: Intramural fat within portions of the small and large bowel which can be seen in the setting of prior inflammation. No obstruction. No appreciable mucosal thickening. PELVIS: Appendix: Normal caliber appendix. No findings to suggest acute appendicitis. Bladder: Unremarkable. No mass. Reproductive: Bilateral ovarian cysts measuring 3.2 cm on the left and 2.9 cm on the right. The u terus is unremarkable as visualized. ABDOMEN and PELVIS: Intraperitoneal space: Unremarkable. No free air. No significant fluid collection. Bones/joints: Mild multilevel osteophytic lipping. No acute fracture. No dislocation. Soft tissues: Midline ventral abdominal wall incisional scar. Small fat-containing periumbilical hernia. Vasculature: Unremarkable. No abdominal aortic aneurysm. Lymph nodes: Unremarkable. No enlarged lymph nodes. IMPRESSION: 1. No acute inflammatory process identified within the abdomen and pelvis. 2. Bilateral ovarian cysts measuring 3.2 cm on the left and 2.9 cm on the right. No follow-up teto ging is recommended. Reference: JACR 2019;17(2):248-254 3. Other findings as above. Electronically signed by: Lacie Lynn MD 12/28/2021 2:20 AM CDT Due to temporary technical issues with the PACS/Fluency reporting system, reports are being signed by the in house radiologists without review as a courtesy to insure prompt reporting. The interpreting radiologist is fully responsible for the content of the report.
== END 2021-12-28 02:38 | disposition home or self-care (01) ==
LOC: ER 21:10
DX: J10.2 Influenza due to other identified influenza virus with gastrointestinal manifestations (principal); Z20.822 Contact with and (suspected) exposure to COVID-19
CPT/HCPCS: 36415; 74177; 80053; 81003; 81025; 83690; 85025; 87804; 96361; 96374; 96375; 99284; J2550; J7030; Q9967; U0003

== ENCOUNTER 2023-01-01 12:07 | Emergency (ER) | payer SELFPAY ==
[2023-01-01] MEDS ORDERED: NA CHLORIDE 0.9% 1,000 ML ONE (12:31)
[2023-01-01] MEDS ORDERED: ONDANSETRON 4 MG/2 ML VIAL ONE (12:31)
[2023-01-01] MEDS ORDERED: FENTANYL CITR 100 MCG/2 ML ONE ×2 (12:31→17:07)
[2023-01-01 12:35] LABS: Absolute Lymphocytes (CBC) 1.4 K/uL (0.7-4.9); Hematocrit 24.2 % (36.0-45.0); Lymphocytes % 29.5 % (15.3-44.8); MCV 85.9 fL (80-100); MPV 7.4 fL (7.6-11.3); Platelets 85 thou/uL (152-406); RBC Red Blood Cell Count 2.82 M/uL (3.86-4.86)
[2023-01-01 12:39] LABS: Protime INR 2.04
[2023-01-01 12:53] LABS: Albumin 2.2 g/dL (3.4-5.0); Potassium 3.2 mEq/L (3.5-5.1); Protein, Total 7.1 g/dL (6.4-8.2)
[2023-01-01 13:04] LABS: White Blood Cell Scan OK (OK)
[2023-01-01 13:05] LABS: Blood Morphology Comment NOT SEEN (NOT SEEN); Platelet Estimate DECR
--- NOTE | 2023-01-01 14:58 | RAD REPORT ---
EXAM DESCRIPTION: CT - Abdomen Pelvis W Contrast - 01/01/2023 2:20 pm CLINICAL HISTORY: Abdominal pain COMPARISON: 2021 TECHNIQUE: Computed axial tomography of the abdomen pelvis was obtained. 100 cc Isovue-300 was admin istered intravenously. Oral contrast was not requested which limits evaluation of bowel and appendix All CT scans are performed using dose optimization technique as appropriate and may include automated exposure control or mA/KV adjustment according to patient size. FINDINGS: Cholecystectomy Cirrhotic liver. Portal vein patent. The spleen measures 15 centimeters Pancreas, adrenals and kidneys unremarkable 3.9 centimeter cyst right adnexa. Small to moderate amount of ascites within the pelvis. A small amou nt ascites within the abdomen. The ascites within the pelvis has increased density suggestive of bloo d. IMPRESSION: Patient most likely has a ruptured right ovarian cyst with small to moderate hemoperiton eum Cirrhosis
--- NOTE | 2023-01-01 15:16 | EDPHYS ---
Physician Documentation [facility] Name: Tammy Mckinley Age: 37 yrs Sex: Female : 1985 Arrival Date: 01/01/2023 Time: 12:07 Bed 15 Private MD: ED Physician HPI: 01/01 12:00 This 37 yrs old Female presents to ER via EMS with complaints of abdominal jh7 pain, hypotension. 12:00 The patient presents with abdominal pain in the lower abdomen. Onset: The jh7 symptoms/episode began/occurred yesterday. Associated signs and symptoms: Pertinent positives: nausea, Pertinent negatives: diarrhea, dysuria, fever, vomiting, vomiting blood. The symptoms are described as sharp. 15:17 Patient complains of bilateral lower abdominal pain starting last night. She states jh7 that she was on her menstrual cycle yesterday and that it was heavy, per usual. She states that she stopped bleeding today but that the pain became severe. EMS reports systolic blood pressure in the 70s upon arrival. 200 mLs of normal saline given in route and patient's blood pressure improved. History of cirrhosis of the liver.. 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 - Social history:: Smoking status: Patient denies any tobacco usage or history of. ROS: 15:17 Constitutional: Negative for fever, chills, and weight loss, Eyes: Negative for injury, jh7 pain, redness, and discharge, Neck: Negative for injury, pain, and swelling, Cardiovascular: Negative for chest pain, palpitations, and edema, Respiratory: Negative for shortness of breath, cough, wheezing, and pleuritic chest pain, Back: Negative for injury and pain, MS/Extremity: Negative for injury and deformity, Skin: Negative for injury, rash, and discoloration, Neuro: Negative for headache, weakness, numbness, tingling, and seizure, 15:17 Abdomen/GI: Positive for abdominal pain, nausea, Negative for vomiting, diarrhea, constipation, 15:17 All other systems are negative, Exam: 15:17 Head/Face: Normocephalic, atraumatic. ENT: Nares patent. No nasal discharge, no jh7 septal abnormalities noted. Tympanic membranes are normal and external auditory canals are clear. Oropharynx with no redness, swelling, or masses, exudates, or evidence of obstruction, uvula midline. Mucous membranes moist. Neck: Trachea midline, no thyromegaly or masses palpated, and no cervical lymphadenopathy. Supple, full range of motion without nuchal rigidity, or vertebral point tenderness. No Meningismus. Cardiovascular: Regular rate and rhythm with a normal S1 and S2. No gallops, murmurs, or rubs. Normal PMI, no JVD. No pulse deficits. Respiratory: Lungs have equal breath sounds bilaterally, clear to auscultation and percussion. No rales, rhonchi or wheezes noted. No increased work of breathing, no retractions or nasal flaring. Back: No spinal tenderness. No costovertebral tenderness. Full range of motion. MS/ Extremity: Pulses equal, no cyanosis. Neurovascular intact. Full, normal range of motion. Neuro: Awake and alert, GCS 15, oriented to person, place, time, and situation. Motor strength 5/5 in all extremities. Sensory grossly intact. 15:17 Constitutional: The patient appears alert, awake, in obvious pain, 15:17 Eyes: Sclera: icterus, is present, 15:17 Abdomen/GI: Inspection: abdomen appears normal, Bowel sounds: normal, Palpation: soft, moderate abdominal tenderness, in the right lower quadrant and left lower quadrant, Liver: tenderness, that is mild, 15:17 Skin: Appearance: Color: jaundiced, pale, Temperature: normal temperature, Moisture: normal moisture, Vital Signs: 12:10 BP 108 / 58; Pulse 86; Resp 16; Temp 97.5; Pulse Ox 100% ; Weight 58.97 kg; Height 5 mb9 ft. 3 in. ; 13:33 BP 105 / 59; Pulse 95; Resp 16; Pulse Ox 100% on R/A; mb9 14:27 BP 117 / 99; Pulse 93; Resp 18; Pulse Ox 100% on R/A; mb9 15:07 BP 103 / 56; Pulse 86; Resp 15; Pulse Ox 100% on R/A; mb9 16:26 BP 113 / 63; Pulse 87; Resp 16; Pulse Ox 100% on R/A; mb9 12:10 Body Mass Index 23.03 (58.97 kg, 160.02 cm) mb9 MDM: 12:11 Patient medically screened. ec2 16:00 Differential diagnosis: appendicitis, Dysmenorrhea, Ectopic , Endometriosis, jh7 GI Bleed, Ovarian Torsion, Peritonitis, Pelvic Inflammatory Disease, Tubal Ovarian Abcess, Hemoperitoneum, ovarian cyst. Data reviewed: vital signs, nurses notes, lab test result(s), radiologic studies, CT scan. Consideration of Admission/Observation The patient will be transferred for higher level of care. Management of patient was discussed with the following: Intern: HOUSE MOVER. I considered the following discharge prescriptions or medication management in the emergency department Medications were administered in the Emergency Department. See MAR. Test considered but Not performed: Ultrasound . Care significantly affected by the following chronic conditions: Liver Disease. Counseling: I had a detailed discussion with the patient and/or guardian regarding the historical points, exam findings, and any diagnostic results supporting the discharge/admit diagnosis, the need to transfer to another facility, for higher level of care, [facility] not [facility] have the required specialist. Response to treatment: the patient's symptoms have mildly improved after treatment. 01/01 12:12 Order name: CBC with Diff; Complete Time: 13:16 [facility] 01/01 12:12 Order name: CMP; Complete Time: 13:16 [facility] 01/01 12:12 Order name: Lipase; Complete Time: 13:16 [facility] 01/01 12:12 Order name: PT-INR; Complete Time: 12:47 [facility] 01/01 12:12 Order name: Type And Screen; Complete Time: 13:27 [facility] 01/01 12:47 Order name: Lactate w/ 2H reflex if indic.; Complete Time: 14:30 [facility] 01/01 12:53 Order name: Test, Serum; Complete Time: 14:06 iw 01/01 13:05 Order name: CBC Smear Scan; Complete Time: 13:16 EDMS 01/01 14:21 Order name: ABO/RH no charge; Complete Time: 14:30 EDSC 01/01 15:17 Order name: Bb Add On bd 01/01 12:12 Order name: CT Abd/Pelvis - IV Contrast Only; Complete Time: 14:59 [facility] 01/01 12:12 Order name: IV Saline Lock; Complete Time: 12:15 7 01/01 12:12 Order name: Labs collected and sent; Complete Time: 12:31 7 Administered Medications: 12:16 Drug: Ondansetron IVP 4 mg IVP once; over 2 minutes Route: IVP; Site: left antecubital; mb9 16:57 Follow up: Response: No adverse reaction mb9 12:16 Not Given (Physician Discretion): morphineor iv 4 mg IVP once over 4 mins jh7 12:20 Drug: NS 0.9% IV 1000 ml IV at 1 bolus Per protocol; 1000 mL bolus Route: IV; Rate: 1 mb9 bolus; Site: left antecubital; 16:57 Follow up: Response: No adverse reaction; IV Status: Completed infusion mb9 12:20 Drug: fentaNYL (PF) IVP 25 mcg IVP once Route: IVP; Site: left antecubital; mb9 13:33 Follow up: Response: No adverse reaction mb9 16:55 Drug: fentaNYL (PF) IVP 25 mcg IVP once Route: IVP; Site: left antecubital; mb9 16:57 Follow up: Response: No adverse reaction mb9 Disposition Summary: 01/01/23 15:16 Transfer Ordered Notes: Transfer Location: [place] [id number] Reason: Higher level of care 7 Condition: Stable jh7 Problem: new jh7 Symptoms: have worsened jh7 Accepting Physician: Dr. Catherine(01/01/23 17:03) mb9 Diagnosis - Hemoperitoneum jh7 - Ruptured ovarian cyst jh7 - Unspecified cirrhosis of liver jh7 - Thrombocytopenia, unspecified jh7 Forms: - Medication Reconciliation Form 7 - SBAR form 7 Signatures: Dispatcher [employer] Richelle Terrell FNP BASTING MACHINE OPERATOR 7 Staci Nur RN RN mb9 Nate Escalante MD MD ec2 Corrections: (The following items were deleted from the chart) 14:59 12:00 This 37 yrs old Female presents to ER via EMS with complaints of jh7 abdominal pain, hypotension. jh7 16:00 15:16 [facility] accepting MD harper 7 16:11 15:21 Blood Transfusion Consent ordered. 7 9 17:03 16:00 Dr. Catherine jh7 mb9
--- NOTE | 2023-01-01 15:16 | ER ---
Nurse's Notes [facility] Name: Tammy Mckinley Age: 37 yrs Sex: Female : 1985 Arrival Date: 01/01/2023 Time: 12:07 Bed 15 Private MD: Diagnosis: Hemoperitoneum;Ruptured ovarian cyst;Unspecified cirrhosis of liver;Thrombocytopenia, unspecified Presentation: 01/01 12:10 Chief complaint: EMS states: "toned out for heavy vaginal bleeding from period for the mb9 past few days and lower abdominal pain. Pt reports no vaginal bleeding today. Pt systolic on arrival was 77. 20 g to left AC and gave 200 ml of NS.". Coronavirus screen: Vaccine status: Patient reports receiving the 2nd dose of the covid vaccine. Ebola Screen: No symptoms or risks identified at this time. Initial Sepsis Screen: Does the patient meet any 2 criteria? No. Patient's initial sepsis screen is negative. Does the patient have a suspected source of infection? No. Patient's initial sepsis screen is negative. Risk Assessment: Do you want to hurt yourself or someone else? Patient reports no desire to harm self or others. Onset of symptoms was January 01, 2023. 12:10 Method Of Arrival: EMS: [facility] mb9 12:10 Acuity: VIOLET 2 mb9 Triage Assessment: 12:13 General: Appears uncomfortable, Behavior is cooperative. Pain: Complains of pain in mb9 abdomen. EENT: No signs and/or symptoms were reported regarding the EENT system. Neuro: Noriega Agitation-Sedation Scale (RASS): 0 - Alert and Calm Level of Consciousness is awake, obeys commands, lethargic, Oriented to person, place, time, situation, Appropriate for age. Cardiovascular: Heart tones S1 S2 present Patient's skin is warm and dry. Respiratory: Airway is patent Respiratory effort is even, unlabored, Respiratory pattern is regular, symmetrical, Breath sounds are clear bilaterally. GI: Abdomen is round non-distended, Bowel sounds present X 4 quads. Abd is soft Abdomen is tender to palpation in suprapubic area, right lower quadrant and left lower quadrant. : Reports vaginal bleeding that is bright red, heavy flow. Derm: Skin is intact, Skin is dry, Skin is pale, Skin temperature is cool. Musculoskeletal: Range of motion: intact in all extremities. 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 - Social history:: Smoking status: Patient denies any tobacco usage or history of. Screenin:14 [facility] ED Fall Risk Assessment (Adult) History of falling in the last 3 months, mb9 including since admission No falls in past 3 months (0 pts) Confusion or Disorientation No (0 pts) Intoxicated or Sedated No (0 pts) Impaired Gait No (0 pts) Mobility Assist Device Used No (0 pt) Altered Elimination No (0 pt) Score/Fall Risk Level 0 - 2 = Low Risk Oriented to surroundings. Abuse screen: Denies threats or abuse. Nutritional screening: No deficits noted. Tuberculosis screening: No symptoms or risk factors identified. Assessment: 12:14 Reassessment: see triage assessment. mb9 13:15 Reassessment: No changes from previously documented assessment. Patient and/or family mb9 updated on plan of care and expected duration. Pain level reassessed. Patient is alert, oriented x 3, equal unlabored respirations, skin warm/dry/pink. 14:15 Reassessment: No changes from previously documented assessment. Patient and/or family mb9 updated on plan of care and expected duration. Pain level reassessed. Patient is alert, oriented x 3, equal unlabored respirations, skin warm/dry/pink. 15:15 Reassessment: Patient and/or family updated on plan of care and expected duration. Pain mb9 level reassessed. Patient is alert, oriented x 3, equal unlabored respirations, skin warm/dry/pink. Patient states symptoms have improved. 15:21 Reassessment: Consent for platelet transfusion signed by pt. pallavi 16:26 Reassessment: No changes from previously documented assessment. Patient and/or family mb9 updated on plan of care and expected duration. Pain level reassessed. Patient is alert, oriented x 3, equal unlabored respirations, skin warm/dry/pink. 16:56 Reassessment: No changes from previously documented assessment. Report given to [facility]. Vital Signs: 12:10 BP 108 / 58; Pulse 86; Resp 16; Temp 97.5; Pulse Ox 100% ; Weight 58.97 kg; Height 5 mb9 ft. 3 in. ; 13:33 BP 105 / 59; Pulse 95; Resp 16; Pulse Ox 100% on R/A; mb9 14:27 BP 117 / 99; Pulse 93; Resp 18; Pulse Ox 100% on R/A; mb9 15:07 BP 103 / 56; Pulse 86; Resp 15; Pulse Ox 100% on R/A; mb9 16:26 BP 113 / 63; Pulse 87; Resp 16; Pulse Ox 100% on R/A; mb9 12:10 Body Mass Index 23.03 (58.97 kg, 160.02 cm) mb9 ED Course: 12:10 Patient arrived in ED. mb9 12:11 Nate Escalante MD is Attending Physician. ec2 12:11 Richelle Ramirez FNP is PHCP. 7 12:12 Triage completed. mb9 12:13 Arm band placed on. mb9 12:14 Staci Nur, GAIL is Primary Nurse. mb9 12:14 Placed in gown. Bed in low position. Call light in reach. Side rails up X 1. Client mb9 placed on continuous cardiac and pulse oximetry monitoring. NIBP monitoring applied. monitoring coordinator on. Door closed. Noise minimized. Warm blanket given. 12:31 CBC with Diff Sent. mb9 12:31 CMP Sent. mb9 12:31 Lipase Sent. mb9 12:31 No provider procedures requiring assistance completed. Maintain EMS IV. Dressing mb9 intact. Good blood return noted. Site clean \\T\\ dry. Gauge \\T\\ site: 20 g left AC. 14:21 CT Abd/Pelvis - IV Contrast Only In Process Unspecified. EDMS 15:23 Bb Add On Sent. mb9 15:23 Patient transferred, IV remains in place. mb9 15:25 initiated transfer to [facility]. bd 16:46 pt accepted in transfer to [facility] by dr Catherine to ER, admin approval given by hollis Shepherd. Administered Medications: 12:16 Drug: Ondansetron IVP 4 mg IVP once; over 2 minutes Route: IVP; Site: left antecubital; mb9 16:57 Follow up: Response: No adverse reaction mb9 12:16 Not Given (Physician Discretion): morphineor iv 4 mg IVP once over 4 mins 7 12:20 Drug: NS 0.9% IV 1000 ml IV at 1 bolus Per protocol; 1000 mL bolus Route: IV; Rate: 1 mb9 bolus; Site: left antecubital; 16:57 Follow up: Response: No adverse reaction; IV Status: Completed infusion mb9 12:20 Drug: fentaNYL (PF) IVP 25 mcg IVP once Route: IVP; Site: left antecubital; mb9 13:33 Follow up: Response: No adverse reaction mb9 16:55 Drug: fentaNYL (PF) IVP 25 mcg IVP once Route: IVP; Site: left antecubital; mb9 16:57 Follow up: Response: No adverse reaction mb9 Medication: 12:14 VIS not applicable for this client. mb9 Outcome: 15:16 ER care complete, transfer ordered by . [facility] 16:26 [facility]red to [facility], Transfer form completed. mb9 16:26 Transferred Note: Report given to GAIL Berrios 16:26 Condition: stable 16:26 Instructed on the need for transfer, 17:03 Patient left the ED. mb9 Signatures: Dispatcher [employer] EDAntionette Goins Jennifer, SALES OPERATIONS ANALYST SALES OPERATIONS ANALYST [facility] Staci Nur RN RN mb9 Nate Escalante MD MD ec2
[2023-01-01] MEDS ORDERED: NA CHLORIDE 0.9% 250 ML ONE (15:30)
== END 2023-01-01 17:03 | disposition short-term general hospital (02) ==
LOC: ER 12:07
DX: K66.1 Hemoperitoneum (principal); N83.299 Other ovarian cyst, unspecified side; D69.6 Thrombocytopenia, unspecified; K74.60 Unspecified cirrhosis of liver
CPT/HCPCS: 36415; 74177; 80053; 83605; 83690; 84703; 85025; 85610; 86850; 86900; 86901; 96361; 96374; 96375; 99285; J2405; J3010; J7030; J7050; Q9967